=== PATIENT | female | born 1975 | race African-American/Black ===

== ENCOUNTER 2016-09-12 05:59 | Inpatient (IN) ==
[2016-09-12] MEDS ORDERED: SODIUM CHLORIDE 0.9% 1,000 ML IV STA ×3 (06:04→07:53)
--- NOTE | 2016-09-12 06:08 | Emergency Department Note ---
Arrival - Arrival Chief Complaint: Abdominal / Flank Pain Stated Complaint: abd pain Mode of Arrival: Stretcher Limitations: No Limitations Source: Patient Time Seen by Provider: 09/12/16 06:04 - History of Present Illness HPI Narrative: Patient is a 41-year-old noncompliant diabetic with a four-day history of polyuria and polydipsia did not taking her insulin. The patient has had 2 episodes of DKA in her life reportedly. Patient is a type I diabetic. She denies any chills or fever. She states that she had an episode of DKA several months ago when she stopped taking her insulin. The patient recently moved to the [facility] from [place] states that she is just not been able to get her insulin. Insulin is an [id number] medicine in [place]. Onset (ago): day(s) (4) Consistency: constant Severity: moderate, severe Review of System - Review of System 12 point system: reviewed and no additional remarkable complaints except as stated Medical,Surgical,& Family Hx - Medical History Endocrine: History of: Diabetes Mellitus (IDDM) - Social History Smoking Status: Never smoker Type of Drug Use: Marijuana Functional capacity: independent ambulation Exam Vital Signs: Vital Signs Temperature 98.0 F 09/12/16 06:38 Pulse Rate 131 H 09/12/16 06:38 Respiratory Rate 20 09/12/16 06:38 Blood Pressure 164/86 09/12/16 06:38 O2 Sat by Pulse Oximetry 100 09/12/16 06:07 GENERAL: This is a cachectic black female in no apparent distress. VITAL SIGNS: Reviewed HEENT: Head is atraumatic and normocephalic. Pupils are equal round react to light. Extraocular movements are intact. Oropharynx is benign with dry mucous membranes. NECK: Neck is soft and supple without tenderness. There are no masses. There is no lymphadenopathy. LUNGS: Lungs are clear to auscultation. Chest rises symmetrically. There is no chest wall tenderness. CV: Heart is regular rate and rhythm without murmurs rubs or gallops. ABDOMEN: Abdomen is soft, nontender to palpation. There are no abdominal abnormal masses palpated. There is no organomegaly. Bowel sounds are present and active. SKIN: Skin is warm and dry. No rash. Poor turgor EXTREMITIES: Patient has full range of motion without tenderness. There is no pedal edema. NEUROLOGIC: Awake alert and oriented 4. Cranial nerves II through XII are grossly intact. Motor is 5 over 5 in all extremities bilaterally. Course Course Narrative: Patient is given IV fluid bolus on arrival along with 10 units of regular insulin. - Consultations Consultation #1: Discussed with hospitalist. Patient will be admitted to their service. Time: 07:03 Procedures - ABG Interpretation ABG Interpretation 1 Interpretation: metabolic acidosis (With respiratory compensation) Results - Labs Lab Results: I have reviewed the patients labs Labs: Laboratory Tests 09/12/16 09/12/16 09/12/16 06:26 06:32 06:36 ABG pH 7.151 L* ABG pCO2 12.5 L* ABG pO2 121.0 H ABG HCO3 7.4 L ABG Total CO2 4.2 L ABG O2 Saturation 97.2 ABG Base Excess -23.6 L FiO2 21.00 POC Glucose 358 H Urine pH 5.0 Ur Specific [place] 1.021 Urine Protein 100 Urine Glucose (UA) >=500 Urine Ketones 80 Urine RBC 33 Urine WBC <1 Hyaline Casts 1 Urine Test Negative - Diagnostic Findings Procedure: Chest x-ray: image reviewed by me Disposition Clinical Impression: Type 1 diabetes mellitus, DKA Case discussed with: patient Condition: Guarded
[2016-09-12] MEDS ORDERED: ONDANSETRON 4 MG/2 ML VIAL IV STA ×2 (06:33→07:03)
[2016-09-12] MEDS ORDERED: ONDANSETRON 4 MG/2 ML VIAL ONE ×3 (06:36→07:14)
[2016-09-12 06:38] LABS: Apearance,Urine Slightly Hazy (Clear); Bacteria,Urine Occasional /HPF (Few); Bilirubin,Urine Negative (Negative); Blood, Urine Moderate mg/dL (Negative); Glucose,Urine (UA) >=500 mg/dL (Negative); Hyaline Casts,Urine 1 /LPF (0-3); Ketones,Urine 80 mg/dL (Negative); Mucus,Urine Occasional /LPF (Occasional); Nitrite,Urine Negative (Negative); Protein,Urine 100 MG/DL; RBC,Urine 33 /HPF (0-4); Squamous Epithelial Cell,Urine Occasional /HPF (0-10); Urine Color Straw (Yellow); Urine Specific Gravity 1.021 (1.001-1.035); Urine Urobilinogen < 2.0 EU/DL (0.2-1.0); WBC,Urine <1 /HPF (0-6)
[2016-09-12 06:43] LABS: Allen Test Positive; Pt O2 Delivery Device Room Air
[2016-09-12 06:44] LABS: ABG Base Excess -23.6 MMOL/L (-2.5-2.5); ABG HCO3 7.4 MMOL/L (20-26); ABG Oxygen Saturation 97.2 % (95-100); ABG TCO2 4.2 MMOL/L (23-27)
[2016-09-12 06:48] LABS: ABG PCO2 12.5 MM HG (35-48); ABG PH 7.151 (7.35-7.45)
[2016-09-12] MEDS ORDERED: INSULIN REGULAR 100 UNIT/ML IV STA (06:59)
[2016-09-12 07:00] LABS: Barbiturates Screen,Urine Negative (Negative); Benzodiazepines Screen,Urine Negative (Negative); Cannabinoid Screen,Urine Positive (Negative); Opiate Screen,Urine Negative (Negative); Phencyclidine Screen,Urine Negative (Negative)
[2016-09-12] MEDS ORDERED: PROMETHAZINE 25 MG/1 ML VIAL IM STA (07:03)
[2016-09-12 07:05] LABS: Albumin 3.3 G/DL (3.4-5.0); Bilirubin,Total 0.4 MG/DL (0.2-1.0); Osmolality,Calculated 294.4 MOS/KG (273-304); Potassium 4.4 MMOL/L (3.5-5.1); Total Protein 6.6 G/DL (6.4-8.3)
[2016-09-12] MEDS ORDERED: DEXTROSE 50% 25 GM/50 ML VIAL IV PRN ×2 (07:06)
[2016-09-12] MEDS ORDERED: MAGNESIUM SULF RIDER 4 GM in PREMIX 1 EACH IV PRN (07:06)
[2016-09-12] MEDS ORDERED: SODIUM BICARB INJ 100 MEQ in STERILE WATER INJ 400 ML IV PRN (07:06)
[2016-09-12] MEDS ORDERED: MAGNESIUM SULF RIDER 2 GM in PREMIX 1 EACH IV PRN (07:06)
[2016-09-12] MEDS ORDERED: INSULIN REGULAR 100 UNIT/ML IV ONE (07:06)
[2016-09-12] MEDS ORDERED: SODIUM PHOSPHATE INJ 12.5 MMOL in SODIUM CHLORIDE 0.9% 250 ML IV PRN (07:06)
[2016-09-12] MEDS ORDERED: SODIUM CHLORIDE 0.9% 1,000 ML IV ONE (07:06)
[2016-09-12] MEDS ORDERED: INSULIN REGULAR 100 UNIT/ML ONE (07:07)
[2016-09-12] MEDS ORDERED: PROMETHAZINE 25 MG/1 ML VIAL ONE (07:08)
[2016-09-12 07:27] LABS: Magnesium 1.9 MG/DL (1.8-2.4); Phosphorous 3.5 MG/DL (2.5-4.9)
--- NOTE | 2016-09-12 07:40 | XRay Report ---
Referring Physician: VELMA Mcdaniel Exam: XR chest 1V Date: September 12, 2016 at 7:14 AM Reason: Shortness of breath Comparison: None Findings: The cardiac silhouette is normal in size. No focal consolidation, pneumothorax or pleural effusion is identified. No acute osseous process is seen. Impression: No acute cardiopulmonary process is identified. PROCEDURE INTERPRETED AT [facility] DEPARTMENT OF RADIOLOGY Final Report Signed by: Dr. Petr Varghese
[2016-09-12 07:43] LABS: Basophils % 0.3 % (0.0-0.8); Eosinophils % 0.1 % (0.00-10.9); Hematocrit 30.1 VOL% (35.7-47.0); Hemoglobin 8.1 GM/DL (12.0-16.0); Immature Granulocytes % 0.6 %; Immature Granulocytes Absolute 0.08 #; Lymphocytes # 1.6 10*3/uL (1.4-4.0); Lymphocytes % 11.7 % (21.3-54.2); Mean Corpuscular HGB Conc 26.9 GM/DL (32-36); Mean Corpuscular Hemoglobin 22 PG (27-34); Mean Corpuscular Volume 80.9 FL (87-102); Mean Platelet Volume 10.1 FL (9.6-12.0); Monocytes # 0.6 10*3/uL (0.11-0.8); Monocytes % 4.3 % (1.7-12.7); Neutrophils # 11.3 10*3/uL (1.4-7.4); Platelet Count 718 T/CUMM (130-400); Red Blood Count 3.72 MC/CUMM (3.8-5.5); Red Cell Distribution Width 16.5 % (9.3-17.3); White Blood Count 13.6 T/CUMM (4-12)
[2016-09-12 07:53] LABS: Anisocytosis 1+; Hypochromasia 1+; Microcytosis 1+; Ovalocytes Slight; Polychromasia Slight
[2016-09-12 07:54] LABS: Misc Morphology QS; Platelet Estimate Increased
[2016-09-12 07:55] LABS: Burr Cells Slight
--- NOTE | 2016-09-12 08:05 | Hospitalist History & Physical ---
Assessment and Plan (1) Diabetic ketoacidosis Status: Acute Assessment and plan: The patient reported some obvious financial issues that prevent her from obtaining her prescriptions. We will consult forensic social worker to evaluate for any available resources that this patient may be able to qualify for for the discharge setting. In the meantime, we will admit this patient to critical care. We will replace fluid volume, start insulin drip, initiate DVT prophylaxis, PPIs, hourly Accu-Cheks, and strict intake and output. We will obtain a hemoglobin A1c and refer to the multiple drum sander for review. Current Visit: Yes (2) Diabetic ketoacidosis, type I Status: Acute Current Visit: Yes (3) Anemia Status: Acute Assessment and plan: Hemoglobin and hematocrit noted at 8.1 and 30.1 at the time of admission. We will recheck in a.m. and monitor for trends. If levels continue to trend downward, the patient may require transfusion. Current Visit: Yes History of Present Illness Chief complaint: Nausea and vomiting/hyperglycemia History of present illness: This is a very poor and unfortunate 41-year-old female that presented to the ED at [facility] this morning for evaluation of nausea vomiting abdominal and flank pain. Patient has a medical history significant for diabetes mellitus type 1. She reports no surgical history at the time of encounter. The patient reports that she recently ran out of her insulin about 4 days ago and that she has not been able to obtain any. She reports that she recently relocated to the [facility] from [place], [place] and has not secured a primary care physician or been able to obtain her insulin. She reports an episode similar in nature in the past in which she was subsequently diagnosed with diabetic ketoacidosis. She reports a gradual onset of polyuria, polydipsia, polyphagia which started about 4 days ago. She denies tobacco and alcohol use; however reports marijuana use. At the time of ED presentation, the patient was noted in moderate distress. She was tachycardic with a heart rate in the 130s with continuous nausea and vomiting. Labs were obtained, hematology reports white blood cell count at 13.6 , hemoglobin 8.1, hematocrit 30.1, and platelet count is 718. Arterial blood gas was obtained which reported a pH at 7.151, PCO2 of 12.5, HCO3 at 7.4. Chemistry profile was obtained which reported a sodium at 140, potassium at 4.4 , chloride at 110, carbon dioxide is 6, anion gap at 28.4, BUN 11, creatinine at 0.70, glucose of 409, calculated osmolality at 294.4, calcium at 8.0, phosphorus at 3.5, magnesium at 1.9, AST at 12, ALT at 12, alkaline phosphatase at 70, albumin at 3.3, beta hydroxybutyrate acid at 4.4. Chest x-ray was obtained which was benign for any acute cardiopulmonary process. After brief discussion with both Dr. Shepard and Dr. Garcia, the patient will be admitted to the hospitalist services to the critical care unit for management during the clinical encounter. Allergies Allergy/AdvReac Type Severity Reaction Status Date / Time No Known Allergies Allergy Verified 09/12/16 07:19 Medical,Surgical,& Family Hx - Medical History Endocrine: History of: Diabetes Mellitus (IDDM) - Social History Smoking Status: Never smoker Frequency of Alcohol Use: Unknown Type of Drug Use: Marijuana 12 point system: reviewed and no additional remarkable complaints except as stated Exam - Constitutional Vitals: Period Temp Pulse Resp BP Sys/Garcia Pulse Ox Last 24 Hr 98.0 F-98.0 F 121-143 18-27 141-184/78-86 100-100 General appearance: mild distress, under weight - Head Head exam: Present: normal inspection, normocephalic, atraumatic - Eye Eye exam: Present: EOMI. Absent: conjunctival injection Pupils: Present: MAYELIN, normal accommodation - ENT ENT exam: Present: normal exam, normal external ear exam, normal oropharynx - Neck Neck exam: Present: normal inspection. Absent: lymphadenopathy, meningismus, tenderness, thyromegaly - Respiratory Respiratory exam: Present: clear to auscultation bilaterally, prolonged expiratory phase. Absent: rales, rhonchi, stridor, wheezes - Cardiovascular Cardiovascular exam: Present: tachycardia. Absent: carotid bruit, diastolic murmur, gallop, JVD, rubs, systolic murmur - GI/Abdominal GI/Abdominal exam: Present: normal bowel sounds, tenderness (Epigastric), soft - Extremities Exam Extremities exam: Present: normal inspection, normal capillary refill, full ROM , edema - Back Exam Back exam: Present: normal inspection - Neurological Exam Neurological exam: Present: alert, oriented X3, CN II-XII intact - Psychiatric Psychiatric exam: Present: anxious - Skin Skin exam: Present: normal color, warm, dry Results - Labs CBC & BMP: 09/12/16 06:26 09/12/16 06:26 Lab Results: I have reviewed the past 24 hour labs
[2016-09-12] MEDS: INSULIN REGULAR DRIP 100 ML IV SCH (08:22)
[2016-09-12] MEDS ORDERED: MAGNESIUM SULF RIDER 2 GM in PREMIX 1 EACH IV ONE (08:39)
[2016-09-12] MEDS: ONDANSETRON 4 MG/2 ML VIAL IV PRN (09:22)
[2016-09-12] MEDS: ENOXAPARIN 40 MG/0.4 ML SYRINGE SUBCUT SCH (09:28)
[2016-09-12 09:35] LABS: Osmolality,Calculated 300.1 MOS/KG (273-304); Potassium 4.9 MMOL/L (3.5-5.1)
[2016-09-12 09:47] LABS: Apearance,Urine CLEAR (Clear); Bacteria,Urine Occasional /HPF (Few); Bilirubin,Urine Negative (Negative); Blood, Urine Moderate mg/dL (Negative); Glucose,Urine (UA) >=500 mg/dL (Negative); Ketones,Urine 80 mg/dL (Negative); Nitrite,Urine Negative (Negative); Protein,Urine Negative; RBC,Urine 12 /HPF (0-4); Urine Color Colorless (Yellow); Urine Specific Gravity 1.012 (1.001-1.035); Urine Urobilinogen < 2.0 EU/DL (0.2-1.0); WBC,Urine <1 /HPF (0-6)
[2016-09-12] MEDS: SODIUM CHLORIDE 0.9% 1,000 ML IV SCH ×4 (10:00→12:05)
[2016-09-12] MEDS: POTASSIUM CHLORIDE 20 MEQ TABLET PO SCH ×3 (10:21→19:24)
[2016-09-12] MEDS ORDERED: SODIUM CHLORIDE 0.9% 1,000 ML IV SCH (12:06)
[2016-09-12] MEDS ORDERED: MORPHINE 2 MG/1 ML SYRINGE IV PRN (12:15)
[2016-09-12 14:54] LABS: Calcium 7.2 MG/DL (8.5-10.1); Osmolality,Calculated 291.8 MOS/KG (273-304); Potassium 4.7 MMOL/L (3.5-5.1)
[2016-09-12] MEDS: DEXTROSE 5% NACL 0.45% 1,000 ML IV SCH (19:25)
[2016-09-12 20:36] LABS: Calcium 7.1 MG/DL (8.5-10.1); Osmolality,Calculated 287.6 MOS/KG (273-304); Potassium 4.1 MMOL/L (3.5-5.1)
[2016-09-12] MEDS: PROMETHAZINE 25 MG/1 ML VIAL IM PRN (22:01)
[2016-09-13] MEDS: ONDANSETRON 4 MG/2 ML VIAL IV PRN ×2 (00:05→07:10)
[2016-09-13] MEDS ORDERED: SODIUM CHLORIDE 0.45% 1,000 ML IV SCH (00:06)
[2016-09-13] MEDS: DEXTROSE 5% NACL 0.45% 1,000 ML IV SCH ×4 (02:10→17:16)
[2016-09-13 03:39] LABS: ABG Base Excess -11.6 MMOL/L (-2.5-2.5); ABG HCO3 12.3 MMOL/L (20-26); ABG Oxygen Saturation 98.2 % (95-100); ABG PCO2 21.6 MM HG (35-48); ABG PH 7.373 (7.35-7.45); ABG PO2 110.6 MM HG (80-95); Allen Test Positive; Pt O2 Delivery Device Room Air
[2016-09-13] MEDS: PROMETHAZINE 25 MG/1 ML VIAL IM PRN ×2 (04:12→11:29)
[2016-09-13 05:43] LABS: Basophils % 0.1 % (0.0-0.8); Eosinophils % 0.1 % (0.00-10.9); Hematocrit 25.2 VOL% (35.7-47.0); Immature Granulocytes % 0.5 %; Immature Granulocytes Absolute 0.06 #; Lymphocytes # 1.2 10*3/uL (1.4-4.0); Lymphocytes % 9.4 % (21.3-54.2); Mean Corpuscular HGB Conc 27.8 GM/DL (32-36); Mean Corpuscular Hemoglobin 21 PG (27-34); Mean Corpuscular Volume 75.9 FL (87-102); Mean Platelet Volume 9.6 FL (9.6-12.0); Monocytes # 0.6 10*3/uL (0.11-0.8); Monocytes % 4.8 % (1.7-12.7); Neutrophils # 10.7 10*3/uL (1.4-7.4); Neutrophils % 85.1 % (38.7-73.9); Platelet Count 572 T/CUMM (130-400); Red Blood Count 3.32 MC/CUMM (3.8-5.5); Red Cell Distribution Width 16.7 % (9.3-17.3); White Blood Count 12.5 T/CUMM (4-12)
[2016-09-13 05:54] LABS: Hemoglobin 7.2 GM/DL (12.0-16.0)
[2016-09-13 06:04] LABS: Hypochromasia 1+
[2016-09-13 06:05] LABS: Microcytosis 1+; Platelet Estimate Increased
[2016-09-13 06:06] LABS: Calcium 7.7 MG/DL (8.5-10.1); Potassium 3.4 MMOL/L (3.5-5.1)
[2016-09-13 06:07] LABS: Magnesium 2.1 MG/DL (1.8-2.4)
[2016-09-13] MEDS: POTASSIUM CHLORIDE RIDER 10 MEQ in PREMIX 1 EACH IV PRN ×10 (07:10→23:43)
--- NOTE | 2016-09-13 08:26 | Hospitalist Progress Note ---
Assessment and Plan (1) Diabetic ketoacidosis, type I Status: Acute Current Visit: Yes (2) Anemia Status: Acute Assessment and plan: Patient has been admitted to the critical care unit for DKA. Her gap has closed. She still low on her bicarb. I think we need to continue with IV fluids potassium replacement protocol and insulin. I have ordered a KUB for her abdominal pain. Most likely the abdominal pain secondary to the DKA. She has thrown up a lot and it could be secondary to that also. She last smoked marijuana Sunday. This could have contributed to her hyperemesis. We will continue with ICU monitoring and treatment. I have extended the serial BMPs through tomorrow Current Visit: Yes Hospitalist: Subjective Interval history: He should have an significant nausea and vomiting. Complaining about abdominal pain. Exam - Constitutional Vitals: Period Temp Pulse Resp BP Sys/Garcia Pulse Ox Last 24 Hr 97.2 F-98.4 F 99-131 12-28 101-141/57-84 100-100 General appearance: under weight - Head Head exam: Present: normal inspection - ENT ENT exam: Present: normal exam - Neck Neck exam: Present: normal inspection - Respiratory Respiratory exam: Present: clear to auscultation bilaterally - Cardiovascular Cardiovascular exam: Present: regular rate and rhythm - GI/Abdominal GI/Abdominal exam: Present: hypoactive bowel sounds, tenderness - Extremities Exam Extremities exam: Present: normal inspection - Back Exam Back exam: Present: normal inspection - Neurological Exam Neurological exam: Present: alert Results - Labs CBC & BMP: 09/13/16 05:09 09/13/16 05:09
[2016-09-13] MEDS: ENOXAPARIN 40 MG/0.4 ML SYRINGE SUBCUT SCH (09:11)
--- NOTE | 2016-09-13 09:16 | XRay Report ---
Exam: XR KUB Date: 09/13/2016 8:21 AM Comparison: None Indication: Generalized abdominal pain Technique:[Supine abdomen] Findings: Nonobstructed bowel gas pattern. No obvious mass or acute osseous findings. Impression: No definite acute abdominal pathology identified. PROCEDURE INTERPRETED AT [facility] DEPARTMENT OF RADIOLOGY Final Report Signed by: Dr. Ashley Blanco
[2016-09-13 11:30] LABS: Calcium 7.6 MG/DL (8.5-10.1); Osmolality,Calculated 279.3 MOS/KG (273-304); Potassium 3.5 MMOL/L (3.5-5.1)
[2016-09-13] MEDS: INSULIN REGULAR DRIP 100 ML IV SCH ×2 (15:05→22:22)
[2016-09-13] MEDS ORDERED: SCOPOLAMINE 1.5 MG PATCH TRANSDERM PRN (15:57)
[2016-09-13 17:15] LABS: Calcium 7.7 MG/DL (8.5-10.1); Osmolality,Calculated 271.8 MOS/KG (273-304); Potassium 3.6 MMOL/L (3.5-5.1)
[2016-09-13 21:25] LABS: Calcium 7.8 MG/DL (8.5-10.1); Osmolality,Calculated 265.1 MOS/KG (273-304); Potassium 3.5 MMOL/L (3.5-5.1)
[2016-09-14] MEDS: POTASSIUM CHLORIDE RIDER 10 MEQ in PREMIX 1 EACH IV PRN ×8 (00:40→22:48)
[2016-09-14] MEDS: DEXTROSE 5% NACL 0.45% 1,000 ML IV SCH ×3 (01:20→09:57)
[2016-09-14] MEDS: ONDANSETRON 4 MG/2 ML VIAL IV PRN (03:14)
[2016-09-14 05:13] LABS: Potassium 3.3 MMOL/L (3.5-5.1)
[2016-09-14] MEDS ORDERED: DEXT 5% NACL 0.45% KCL 40 MEQ 40 MEQ/1,000 ML BAG IV SCH (09:00)
[2016-09-14] MEDS: ENOXAPARIN 40 MG/0.4 ML SYRINGE SUBCUT SCH (09:21)
[2016-09-14 09:22] LABS: Blood Urea Nitrogen < 1 MG/DL (7-18); Calcium 8.2 MG/DL (8.5-10.1); Glucose 102 MG/DL (74-106); Osmolality,Calculated 269.2 MOS/KG (273-304); Potassium 3.1 MMOL/L (3.5-5.1); Sodium 137 MMOL/L (136-145)
[2016-09-14] MEDS: INSULIN REGULAR DRIP 100 ML IV SCH (09:26)
[2016-09-14] MEDS: INSULIN REGULAR 100 UNIT/ML SUBCUT SCH ×4 (12:13→23:45)
[2016-09-14 15:13] LABS: Calcium 8.4 MG/DL (8.5-10.1); Osmolality,Calculated 275.5 MOS/KG (273-304)
--- NOTE | 2016-09-14 17:05 | Hospitalist Progress Note ---
Assessment and Plan - Time spent with patient Time spent with patient: Greater than 30 minutes (Approximately 32 minutes) (1) Hypokalemia Status: Acute Assessment and plan: Potassium is being supplemented. Check magnesium in a.m. Current Visit: Yes (2) Diabetes Status: Chronic Current Visit: Yes Qualifiers: Diabetes mellitus type: type 1 (3) Diabetic ketoacidosis Status: Acute Assessment and plan: Ketoacidosis continues to improve. Current Visit: Yes Qualifiers: Diabetes mellitus type: type 1 (4) Diabetic ketoacidosis, type I Status: Acute Current Visit: Yes Qualifiers: Diabetes mellitus complication detail: without coma Qualified Code(s): E10.10 - Type 1 diabetes mellitus with ketoacidosis without coma Hospitalist: Subjective Interval history: Today patient glucoses have continued to improve. Insulin infusion has been trended off. Patient is now starting on a clear diet. Anion gap is continuing to close. The potassium is being supplemented. At this time continue with IV fluids. Plan for CBC BMP in a.m. Exam - Constitutional Vitals: Period Temp Pulse Resp BP Sys/Garcia Pulse Ox Last 24 Hr 97.5 F-98.3 F 88-109 10-20 121-166/72-105 100-100 General appearance: normal weight - Head Head exam: Present: normal inspection - Eye Eye exam: Present: EOMI - Neck Neck exam: Present: normal inspection - Respiratory Respiratory exam: Present: clear to auscultation bilaterally - Cardiovascular Cardiovascular exam: Present: regular rate and rhythm - GI/Abdominal GI/Abdominal exam: Present: normal bowel sounds - Extremities Exam Extremities exam: Present: normal inspection - Neurological Exam Neurological exam: Present: alert, oriented X3, CN II-XII intact - Psychiatric Psychiatric exam: Present: normal affect - Skin Skin exam: Present: normal color Results - Labs CBC & BMP: 09/13/16 05:09 09/14/16 14:39
[2016-09-14] MEDS: SODIUM CHLOR 0.9% KCL 40 MEQ 40 MEQ/1,000 ML BAG IV SCH (17:12)
[2016-09-14] MEDS: ALUMINUM/MAGNES/SIMETH MAX STR 30 ML UDCUP PO PRN ×2 (17:13→23:48)
[2016-09-14] MEDS: PROMETHAZINE 25 MG/1 ML VIAL IM PRN (21:37)
[2016-09-15] MEDS: SODIUM CHLOR 0.9% KCL 40 MEQ 40 MEQ/1,000 ML BAG IV SCH ×3 (04:31→18:47)
[2016-09-15] MEDS: INSULIN REGULAR 100 UNIT/ML SUBCUT SCH ×5 (04:42→21:40)
[2016-09-15 05:05] LABS: Basophils % 0.1 % (0.0-0.8); Hemoglobin 8.4 GM/DL (12.0-16.0); Immature Granulocytes % 0.3 %; Immature Granulocytes Absolute 0.03 #; Lymphocytes # 1.1 10*3/uL (1.4-4.0); Lymphocytes % 12.1 % (21.3-54.2); Mean Corpuscular Hemoglobin 21 PG (27-34); Mean Platelet Volume 9.7 FL (9.6-12.0); Monocytes # 0.7 10*3/uL (0.11-0.8); Monocytes % 7.6 % (1.7-12.7); Neutrophils # 7.1 10*3/uL (1.4-7.4); Neutrophils % 79.9 % (38.7-73.9); Platelet Count 530 T/CUMM (130-400); Red Blood Count 3.97 MC/CUMM (3.8-5.5); Red Cell Distribution Width 16.6 % (9.3-17.3); White Blood Count 8.9 T/CUMM (4-12)
[2016-09-15 05:34] LABS: Calcium 7.8 MG/DL (8.5-10.1); Potassium 4.2 MMOL/L (3.5-5.1)
[2016-09-15] MEDS: ENOXAPARIN 40 MG/0.4 ML SYRINGE SUBCUT SCH (08:39)
[2016-09-15] MEDS: CLORAZEPATE 3.75 MG TABLET PO SCH ×2 (10:28→21:40)
--- NOTE | 2016-09-15 12:32 | Hospitalist Progress Note ---
Assessment and Plan (1) Hypokalemia Status: Resolved Assessment and plan: This is resolved Current Visit: Yes (2) Diabetes Status: Chronic Current Visit: Yes Qualifiers: Diabetes mellitus type: type 1 (3) Diabetic ketoacidosis Status: Resolved Assessment and plan: Ketoacidosis continues to improve. Current Visit: Yes Qualifiers: Diabetes mellitus type: type 1 (4) Diabetic ketoacidosis, type I Status: Resolved Current Visit: Yes Qualifiers: Diabetes mellitus complication detail: without coma Qualified Code(s): E10.10 - Type 1 diabetes mellitus with ketoacidosis without coma Hospitalist: Subjective Interval history: The patient is resting no further vomiting. Currently on a clear liquid diet. Glucoses have been acceptable. At this time stable to transfer to floor. Exam - Constitutional Vitals: Period Temp Pulse Resp BP Sys/Garcia Pulse Ox Last 24 Hr 97.0 F-98.3 F 96-122 12-18 121-169/72-102 100-100 General appearance: normal weight - Head Head exam: Present: normal inspection - Respiratory Respiratory exam: Present: clear to auscultation bilaterally - Cardiovascular Cardiovascular exam: Present: regular rate and rhythm - GI/Abdominal GI/Abdominal exam: Present: normal bowel sounds - Neurological Exam Neurological exam: Present: alert, oriented X3 - Psychiatric Psychiatric exam: Present: normal affect Results - Labs CBC & BMP: 09/15/16 03:51 09/15/16 03:51
[2016-09-16] MEDS: INSULIN REGULAR 100 UNIT/ML SUBCUT SCH ×7 (01:18→23:34)
[2016-09-16] MEDS: SODIUM CHLOR 0.9% KCL 40 MEQ 40 MEQ/1,000 ML BAG IV SCH ×2 (01:19→10:18)
[2016-09-16] MEDS: ENOXAPARIN 40 MG/0.4 ML SYRINGE SUBCUT SCH (08:55)
[2016-09-16] MEDS: CLORAZEPATE 3.75 MG TABLET PO SCH ×2 (08:56→21:28)
--- NOTE | 2016-09-16 09:30 | Hospitalist Progress Note ---
Assessment and Plan (1) Diabetic ketoacidosis, type I Status: Resolved Assessment and plan: Ketoacidosis continues to improve. Plan Advance to DM diet DM teaching Will commence with half of the home dose of Novolin 70/30 20units bid A1c-13.3 Will get lipids and TSH Current Visit: Yes Qualifiers: Diabetes mellitus complication detail: without coma Qualified Code(s): E10.10 - Type 1 diabetes mellitus with ketoacidosis without coma (2) Anemia Status: Acute Assessment and plan: will get Iron studies, stool for occult blood Current Visit: Yes Hospitalist: Subjective Interval history: Patient seen. She is tolerating po intake, and wants her diet advanced.patient states takes Novolin 70/30 40units bid. Exam - Constitutional Vitals: Period Temp Pulse Resp BP Sys/Garcia Pulse Ox Last 24 Hr 97.7 F-99.0 F 95-113 16-20 122-161/75-94 99-100 General appearance: no acute distress - Head Head exam: Present: normal inspection - Respiratory Respiratory exam: Present: clear to auscultation bilaterally - Cardiovascular Cardiovascular exam: Present: regular rate and rhythm - GI/Abdominal GI/Abdominal exam: Present: normal bowel sounds - Extremities Exam Extremities exam: Present: normal inspection - Neurological Exam Neurological exam: Present: alert, oriented X3 Results - Labs CBC & BMP: 09/15/16 03:51 09/15/16 03:51 Lab Results: I have reviewed the past 24 hour labs
[2016-09-16] MEDS: INSULIN NPH/REGULAR 70/30 100 UNIT/ML SUBCUT SCH ×2 (10:15→16:23)
[2016-09-16 11:09] LABS: % Iron Saturation 3.7 % (18-50)
[2016-09-16 11:29] LABS: Free T4 (Free Thyroxine) 1.35 NG/DL (0.76-1.46); Thyroid Stimulating Hormone 1.54 uIU/ml (0.358-3.74)
[2016-09-17] MEDS: INSULIN REGULAR 100 UNIT/ML SUBCUT SCH ×5 (05:00→20:23)
[2016-09-17 06:29] LABS: Risk Ratio 3.14; VLDL CHOLESTEROL 17.8 MG/DL
[2016-09-17] MEDS: INSULIN NPH/REGULAR 70/30 100 UNIT/ML SUBCUT SCH ×2 (08:11→17:35)
[2016-09-17] MEDS: CLORAZEPATE 3.75 MG TABLET PO SCH ×2 (08:11→21:48)
[2016-09-17 08:15] LABS: Basophils % 0.3 % (0.0-0.8); Eosinophils # 0.1 10*3/uL (0.0-0.87); Eosinophils % 1.3 % (0.00-10.9); Hematocrit 25.9 VOL% (35.7-47.0); Hemoglobin 7.6 GM/DL (12.0-16.0); Immature Granulocytes % 0.1 %; Immature Granulocytes Absolute 0.01 #; Lymphocytes % 28.1 % (21.3-54.2); Mean Corpuscular HGB Conc 29.3 GM/DL (32-36); Mean Corpuscular Hemoglobin 22 PG (27-34); Mean Corpuscular Volume 75.1 FL (87-102); Mean Platelet Volume 10.2 FL (9.6-12.0); Monocytes # 0.5 10*3/uL (0.11-0.8); Monocytes % 7.5 % (1.7-12.7); Neutrophils # 4.5 10*3/uL (1.4-7.4); Neutrophils % 62.7 % (38.7-73.9); Platelet Count 355 T/CUMM (130-400); Red Blood Count 3.45 MC/CUMM (3.8-5.5); Red Cell Distribution Width 17.2 % (9.3-17.3); White Blood Count 7.1 T/CUMM (4-12)
[2016-09-17 08:27] LABS: Calcium 8.2 MG/DL (8.5-10.1); Osmolality,Calculated 275.4 MOS/KG (273-304); Potassium 3.7 MMOL/L (3.5-5.1)
--- NOTE | 2016-09-17 09:27 | Hospitalist Progress Note ---
Assessment and Plan (1) Diabetic ketoacidosis, type I Status: Resolved Assessment and plan: Ketoacidosis has improved.Lipid and TSH- unremarkable.A1c-13.3 Plan Continue with DM diet, DM teaching. Continue current Insulin regime. Current Visit: Yes Qualifiers: Diabetes mellitus complication detail: without coma Qualified Code(s): E10.10 - Type 1 diabetes mellitus with ketoacidosis without coma (2) Anemia Status: Acute Assessment and plan: due to Fe deficiency.Follow stool for occult blood -Pelvic uss to evaluate her heavy menstrual bleeds which could be a pointer to the cause of this anemia - Start Fe supplements Current Visit: Yes Hospitalist: Subjective Interval history: Patient seen this am. She didn't sleep well at night.Her H/H dropped to 7.6/ 25.9. She denies any bloody stools but states a history of heavy menstrual bleed.She also wants her heart monitor discontinued. Exam - Constitutional Vitals: Period Temp Pulse Resp BP Sys/Garcia Pulse Ox Last 24 Hr 98.2 F-98.6 F 91-116 18-18 105-127/61-78 100-100 General appearance: no acute distress - Neck Neck exam: Present: normal inspection - Respiratory Respiratory exam: Present: clear to auscultation bilaterally - GI/Abdominal GI/Abdominal exam: Present: normal bowel sounds - Extremities Exam Extremities exam: Present: normal inspection - Neurological Exam Neurological exam: Present: alert, oriented X3 Results - Labs CBC & BMP: 09/17/16 05:12 09/17/16 05:12 Lab Results: I have reviewed the past 24 hour labs
[2016-09-17] MEDS: IRON (CARBONYL) 45 MG TABLET PO SCH (09:45)
[2016-09-17] MEDS: ENOXAPARIN 40 MG/0.4 ML SYRINGE SUBCUT SCH (09:48)
--- NOTE | 2016-09-17 13:49 | Ultrasound Report ---
US pelvic complete Indication: Heavy menstrual bleeding. Pelvic ultrasound: Transabdominal grayscale images of the pelvis were obtained. Uterus is anteverted and midline measuring 79 x 43 x 49 mm. Endometrial stripe is 3 mm thick. There is a 3 x 3 mm echogenic focus, likely a polyp, in the lower uterine segment. At least 2 presumed fibroids are present, both pedunculated, largest at the anterior fundus measuring 42 x 48 x 43 mm. Right ovary 25 x 19 x 14 mm. Left ovary 27 x 19 x 15 mm. Both are unremarkable. No free fluid. Impression: 1. Leiomyomata. 2. Small 3 mm echogenic focus in the lower uterine segment endometrial canal, likely a polyp. PROCEDURE INTERPRETED AT [facility] DEPARTMENT OF RADIOLOGY Final Report Signed by: Jeffrey Davis M.D.
[2016-09-18] MEDS: INSULIN REGULAR 100 UNIT/ML SUBCUT SCH ×6 (00:05→21:18)
[2016-09-18 05:47] LABS: Basophils % 0.3 % (0.0-0.8); Eosinophils # 0.1 10*3/uL (0.0-0.87); Eosinophils % 1.2 % (0.00-10.9); Hematocrit 26.3 VOL% (35.7-47.0); Hemoglobin 7.7 GM/DL (12.0-16.0); Immature Granulocytes % 0.4 %; Immature Granulocytes Absolute 0.03 #; Lymphocytes # 1.7 10*3/uL (1.4-4.0); Lymphocytes % 21.8 % (21.3-54.2); Mean Corpuscular HGB Conc 29.3 GM/DL (32-36); Mean Corpuscular Hemoglobin 22 PG (27-34); Mean Corpuscular Volume 75.1 FL (87-102); Mean Platelet Volume 9.9 FL (9.6-12.0); Monocytes # 0.5 10*3/uL (0.11-0.8); Monocytes % 6.3 % (1.7-12.7); Neutrophils # 5.3 10*3/uL (1.4-7.4); Platelet Count 306 T/CUMM (130-400); Red Cell Distribution Width 17.2 % (9.3-17.3); White Blood Count 7.6 T/CUMM (4-12)
[2016-09-18] MEDS: INSULIN NPH/REGULAR 70/30 100 UNIT/ML SUBCUT SCH ×2 (08:40→17:29)
[2016-09-18] MEDS: CLORAZEPATE 3.75 MG TABLET PO SCH ×2 (08:41→21:18)
[2016-09-18] MEDS: IRON (CARBONYL) 45 MG TABLET PO SCH ×2 (08:41→21:18)
--- NOTE | 2016-09-18 09:54 | Hospitalist Progress Note ---
Assessment and Plan (1) Diabetic ketoacidosis, type I Status: Resolved Assessment and plan: Ketoacidosis has improved but blood sugar was 336 this am. Lipid and TSH- unremarkable.A1c-13.3 Plan Continue with DM diet, DM teaching. Increase 70/30 to 40 bid which is the home dose, follow response. Current Visit: Yes Qualifiers: Diabetes mellitus complication detail: without coma Qualified Code(s): E10.10 - Type 1 diabetes mellitus with ketoacidosis without coma (2) Anemia Status: Acute Assessment and plan: due to Fe deficiency.Follow stool for occult blood -Pelvic uss showed presence of fibroids - Continue with Fe supplements and outpt OBGYN consult. Current Visit: Yes Hospitalist: Subjective Interval history: Patient seen this am. Her blood sugar was high in the 300s. Pelvic USS confirmed presence of fibroids. Exam - Constitutional Vitals: Period Temp Pulse Resp BP Sys/Garcia Pulse Ox Last 24 Hr 97.9 F-98.9 F 89-103 17-18 101-115/7-96 100-100 General appearance: no acute distress - Head Head exam: Present: normal inspection - Neck Neck exam: Present: normal inspection - Respiratory Respiratory exam: Present: clear to auscultation bilaterally - Cardiovascular Cardiovascular exam: Present: regular rate and rhythm - GI/Abdominal GI/Abdominal exam: Present: normal bowel sounds - Extremities Exam Extremities exam: Present: normal inspection - Neurological Exam Neurological exam: Present: alert, oriented X3 Results - Labs CBC & BMP: 09/18/16 05:08 09/17/16 05:12 Lab Results: I have reviewed the past 24 hour labs
[2016-09-18] MEDS ORDERED: DOCUSATE SODIUM 100 MG CAPSULE PO PRN (09:57)
[2016-09-19] MEDS: INSULIN REGULAR 100 UNIT/ML SUBCUT SCH ×4 (01:04→11:17)
[2016-09-19 06:30] LABS: Basophils % 0.2 % (0.0-0.8); Eosinophils # 0.1 10*3/uL (0.0-0.87); Hematocrit 26.9 VOL% (35.7-47.0); Hemoglobin 7.7 GM/DL (12.0-16.0); Immature Granulocytes % 0.4 %; Immature Granulocytes Absolute 0.04 #; Lymphocytes # 2.2 10*3/uL (1.4-4.0); Mean Corpuscular HGB Conc 28.6 GM/DL (32-36); Mean Corpuscular Hemoglobin 22 PG (27-34); Mean Corpuscular Volume 75.1 FL (87-102); Mean Platelet Volume 10.1 FL (9.6-12.0); Monocytes # 0.6 10*3/uL (0.11-0.8); Monocytes % 6.3 % (1.7-12.7); Neutrophils # 6.5 10*3/uL (1.4-7.4); Neutrophils % 69.1 % (38.7-73.9); Platelet Count 290 T/CUMM (130-400); Red Blood Count 3.58 MC/CUMM (3.8-5.5); Red Cell Distribution Width 17.2 % (9.3-17.3); White Blood Count 9.4 T/CUMM (4-12)
[2016-09-19 06:49] LABS: Hypochromasia 2+; Microcytosis 1+; Platelet Estimate Adequate; Polychromasia Slight
[2016-09-19] MEDS: CLORAZEPATE 3.75 MG TABLET PO SCH (08:09)
[2016-09-19] MEDS: IRON (CARBONYL) 45 MG TABLET PO SCH (08:10)
[2016-09-19] MEDS: INSULIN NPH/REGULAR 70/30 100 UNIT/ML SUBCUT SCH (08:20)
--- NOTE | 2016-09-19 08:49 | Discharge Summary ---
<Janet Ferris - Last Filed: 09/19/16 08:28> Hospital Course - Hospital Course Hospital Course: Ms. Underwood is a 41 yr old female with a history of diabetes that presented to the [facility] ED on 09/12 with complaints of nausea and vomiting with abdominal and flank pain. At the time, pt reported that she'd recently run out of insulin. Pt. also reported not having a PCP here in [place] as she had recently [place]. Pt. stated she was experiencing polyuria , polydipisia, and polyphagia. On exam in the ED, pt was noted to have a WBC of 13.6, h&h 8.1/30.1, and glucose of 409. The patient was admitted to the hospitalist service for DKA, placed in the ICU . Pt. received IV fluids and and was on an insulin infusion.Her HbA1c was 13.3. Her blood sugars improved, she was moved to the floor and placed on sliding scale insulin.Her home home dose was restarted initially with half of it and was subsequently increased. Her diet was further advanced .During the patient's hospital stay her h&h dropped to 7.6/25.9. Due to her reports of heavy menstrual cycles, the patient was started on an iron supplement and a pelvic US was performed. This ultrasound confirmed presence of fibroids. She will see an OBGYN as outpt. Pt's blood sugars have been under control. library services assistant has spoken with patient about her options due to limited insurance. Pt. has also been educated about diabetes management. Pt. is stable today and ready for discharge. She is encouraged to seek PCP follow up and was counseled to quit marijuana. Discharge Plan - Discharge Data Disposition: Disch To Home/Self Care - Discharge Medications New Docusate Sodium Cap [Colace Cap] 100 mg PO BID PRN #60 capsule PRN Reason: Constipation Iron (Carbonyl) [Feosol Natural Release Tab] 45 mg PO BID #60 tablet Clorazepate [Tranxene] 3.75 mg PO BID #20 tablet Continue Insulin NPH Hum/Reg Insulin Hm [NovoLIN 70/30] 40 unit SUBCUT BID #7 - Follow Up or Referral - Forms/Instructions Exam - Constitutional Vitals: Period Temp Pulse Resp BP Sys/Garcia Pulse Ox Last 24 Hr 97.7 F-98.7 F 96-128 18-20 97-115/54-76 95-100 Discharge Results Procedures and tests throughout hospitalization: Pending Orders 09/19/16 07:50 Occult Blood, Stool Routine Labs on day of discharge: Labs from last 24 hours 09/19/16 09/19/16 09/19/16 06:15 03:56 01:39 WBC 9.4 RBC 3.58 L Hgb 7.7 L Hct 26.9 L MCV 75.1 L MCH 22 L MCHC 28.6 L RDW 17.2 Plt Count 290 MPV 10.1 Neut % (Auto) 69.1 Lymph % (Auto) 23.0 Hand % (Auto) 6.3 Eos % (Auto) 1.0 Baso % (Auto) 0.2 Neut # (Auto) 6.5 Lymph # (Auto) 2.2 Hand # (Auto) 0.6 Eos # (Auto) 0.1 Baso # (Auto) 0.0 Immature Gran % 0.4 Nucleated RBC % 0.0 Immature Gran # 0.04 Nucleated RBCs # 0.00 Platelet Estimate Adequate Polychromasia Slight Hypochromasia 2+ Microcytosis 1+ POC Glucose 161 H 105 09/19/16 09/18/16 09/18/16 00:39 20:22 16:17 WBC RBC Hgb Hct MCV MCH MCHC RDW Plt Count MPV Neut % (Auto) Lymph % (Auto) Hand % (Auto) Eos % (Auto) Baso % (Auto) Neut # (Auto) Lymph # (Auto) Hand # (Auto) Eos # (Auto) Baso # (Auto) Immature Gran % Nucleated RBC % Immature Gran # Nucleated RBCs # Platelet Estimate Polychromasia Hypochromasia Microcytosis POC Glucose 57 L 185 H 95 09/18/16 11:39 WBC RBC Hgb Hct MCV MCH MCHC RDW Plt Count MPV Neut % (Auto) Lymph % (Auto) Hand % (Auto) Eos % (Auto) Baso % (Auto) Neut # (Auto) Lymph # (Auto) Hand # (Auto) Eos # (Auto) Baso # (Auto) Immature Gran % Nucleated RBC % Immature Gran # Nucleated RBCs # Platelet Estimate Polychromasia Hypochromasia Microcytosis POC Glucose 345 H DS: Provider Date of admission: 09/12/16 07:03 Primary care physician: . No PCP Attending physician on admission: Bear Garcia MD Consults: 09/12/16 07:06 Consult to [facility], Educator [CONS] Routine Reason for Pipe Covering Molder: Diabetes Education Initial Insulin Education Consult Comment: INSULIN EDUCATION 09/12/16 09:54 Consult to Dietitian [CONS] Routine Reason for Dietitian: Dietary Consult 09/16/16 09:44 Consult to [facility], Educator [CONS] Routine Reason for Pipe Covering Molder: Diabetes Education Consult Comment: admitted with DKA 09/18/16 10:07 Consult to Case Mgmt/Social Srvs [CONS] Routine Reason for Case Mgmt/Social Srvs: Other Consult Comment: pt saying she needs assistance with purchasing insulin Discharging clinician: Janet Ferris NP <Vielka Oneil - Last Filed: 09/19/16 09:57> Hospital Course - Time spent with patient Time with patient DS: Greater than 30 minutes (Time spent >34mins) Diagnosis - Discharge Diagnosis (1) Diabetic ketoacidosis, type I Status: Resolved (2) Anemia Status: Acute (3) Fibroid Status: Acute Discharge Plan - Discharge Data Condition at Discharge: Stable Discharge Diet: diabetic diet Activity: resume usual activities as tolerated - Forms/Instructions Additional Discharge Instructions: follow with PCP in 1week. Schedule outpt OBGYN. Exam - Constitutional General appearance: no acute distress - Head Head exam: Present: normal inspection - Respiratory Respiratory exam: Present: clear to auscultation bilaterally - Cardiovascular Cardiovascular exam: Present: regular rate and rhythm - GI/Abdominal GI/Abdominal exam: Present: normal bowel sounds - Extremities Exam Extremities exam: Present: normal inspection
[2016-09-19 10:37] VITALS: BP 134/80
== END 2016-09-19 13:40 | disposition home or self-care (01) | DRG 638 ==
LOC: N.ED 05:59 → N.EDINP 07:03 → SUATTDRO 07:03 → N.ICU 08:00 → N.5E 09-15 15:01
PROVIDERS: ADMIT Internal Medicine; ATTEND Internal Medicine

== ENCOUNTER 2016-11-30 11:44 | Inpatient (IN) ==
[2016-11-30] MEDS ORDERED: PANTOPRAZOLE 40 MG VIAL IV STA (12:11)
[2016-11-30] MEDS ORDERED: ONDANSETRON 4 MG/2 ML VIAL IV STA (12:11)
[2016-11-30] MEDS ORDERED: SODIUM CHLORIDE 0.9% 1,000 ML IV STA ×2 (12:11→15:26)
--- NOTE | 2016-11-30 12:29 | Emergency Department Note ---
Lady Delarosa Hilary, am scribing for, and in the presence of, Joce Weber MD 12:18. Tia Delarosa Charles R, MD, personally performed the services described in this documentation, ascribed by Nadya Narayanan in my presence, and it is both accurate and complete . Arrival - Arrival Chief Complaint: Non-Specific ED Nursing Triage Note: Brought in by EMS c/o elevated glucose-onset this morning. Glucose 389 mg/dl after taking Novolin 70/30 40 units @ 1020 this morning. Mode of Arrival: Stretcher Limitations: No Limitations Source: Patient, RN Notes Reviewed Time Seen by Provider: 11/30/16 12:05 - History of Present Illness HPI Narrative: Pt is a 41 y/o female brought to the ED via EMS for c/o abdominal pain and elevated glucose which onset this morning. Glucose was 389 mg/dl after Novolin 70/30 40 units at 1020. She reports being fine yesterday but woke up this morning with lower abdominal pain, nausea and vomiting. Pt states that she has had similar symptoms to this and ended up in DKA. She also reports losing weight recently. Pt has a PMHx of IDDM. No other complaints or problems stated in the ED. Onset (ago): hour(s) Consistency: constant Severity: moderate, similar to previous episodes Severity scale (1-10): 2 Quality: cramping Date of Last Menstrual Period: 11/26/16 Allergies/Adverse Reactions: Allergies Allergy/AdvReac Type Severity Reaction Status Date / Time No Known Allergies Allergy Verified 09/12/16 07:19 Home Medications: Home Medications Medication Instructions Recorded Confirmed Type Clorazepate [Tranxene] 3.75 mg PO BID #20 tablet 09/19/16 Rx Docusate Sodium Cap [Colace Cap] 100 mg PO BID PRN #60 capsule 09/19/16 Rx Insulin NPH Hum/Reg Insulin Hm 40 unit SUBCUT BID #7 09/19/16 Rx [NovoLIN 70/30] Iron (Carbonyl) [Feosol Natural 45 mg PO BID #60 tablet 09/19/16 Rx Release Tab] Review of System - Review of System 12 point system: reviewed and no additional remarkable complaints except as stated - Review of System Constitutional: Present: other (high blood sugar). Absent: fever Gastrointestinal: Present: abdominal pain, nausea, vomiting Medical,Surgical,& Family Hx - Medical History Cardio: No history of: Cardiovascular Problems HEENT: History of: Eye Problem (over the counter glasses) Endocrine: History of: Diabetes Mellitus (IDDM) Respiratory: No history of: Respiratory Problems Renal: No history of: Renal Problems Gastrointestinal: History of: GI Problems ("feels like food gets stuck") - Surgical History Neurologic Surgeries: Patient denies: Neurologic Surgery - Family History Family History: Reports;: Family Diabetes (father), Family Hypertension (father) Denies;: Family Anesthesia Reaction, Family Cancer, Family Heart Disease, Family Psychiatric Problems, Family Stroke - Social History Smoking Status: Never smoker Frequency of Alcohol Use: Occasionally Type of Drug Use: None Exam Vital Signs: Vital Signs Temperature 97.9 F 11/30/16 11:51 Pulse Rate 116 H 11/30/16 13:21 Respiratory Rate 15 11/30/16 13:21 Blood Pressure 144/117 11/30/16 13:21 O2 Sat by Pulse Oximetry 100 11/30/16 13:21 - General General appearance: alert, in no apparent distress, other (small frame) - Head Head exam: Present: atraumatic, normocephalic - Eye Eye exam: Present: normal appearance, PERRL, EOMI - ENT ENT exam: Present: mucous membranes dry, TM's normal bilaterally. Absent: mucous membranes moist - Neck Neck exam: Present: full ROM, trachea midline. Absent: tenderness - Chest Chest inspection: Present: symmetric chest wall rise. Absent: tenderness - Respiratory Respiratory exam: Present: normal lung sounds bilaterally. Absent: respiratory distress - Cardiovascular Cardiovascular exam: Present: normal rhythm, tachycardia, normal heart sounds. Absent: murmur, rubs, gallop - Abdominal Exam Abdominal exam: Present: soft, tenderness (lower to mid abdominal pain), diminished bowel sounds. Absent: distention - Extremities Exam Extremities exam: Present: full ROM. Absent: tenderness - Back Exam Back exam: Present: full ROM. Absent: tenderness - Neurological Exam Neurological exam: Present: alert, oriented X3, CN II-XII intact. Absent: motor sensory deficit - Psychiatric Psychiatric exam: Present: normal affect, normal mood - Skin Skin exam: Present: warm, dry, intact, normal color. Absent: rash Course - Consultations Consultation #1: Hospitalist will admit patient Time: 15:12 Results - Labs CBC & BMP: 11/30/16 12:23 11/30/16 12:23 Lab Results: I have reviewed the patients labs Labs: Laboratory Tests 11/30/16 11:57 POC Glucose 371 H Laboratory Tests 11/30/16 12:23 Lactic Acid 2.1 H Laboratory Tests 11/30/16 11/30/16 12:23 12:23 WBC 8.5 RBC 4.38 Hgb 9.9 L Hct 35.3 L MCV 80.6 L MCH 23 L MCHC 28.0 L Plt Count 518 H Neut % (Auto) 85.2 H Lymph % (Auto) 10.8 L Lymph # (Auto) 0.9 L Sodium 136 Potassium 4.3 Chloride 104 Carbon Dioxide 11 L Anion Gap 25.3 H Glucose 389 H Troponin I < 0.015 Globulin 4.3 H Albumin/Globulin Ratio 0.9 L Amylase 19 L Laboratory Tests 11/30/16 12:11 ABG pH 7.282 L ABG pCO2 24.6 L ABG pO2 147.0 H ABG HCO3 13.5 L ABG Total CO2 10.9 L ABG Base Excess -14.0 L Laboratory Tests 11/30/16 12:23 b-Hydroxybutyric mmol/L 4.7 H - Diagnostic Findings Procedure: Abdominal x-ray: report reviewed by me (No active process is suggested within the abdomen or pelvis), Chest x-ray: report reviewed by me (No acute pathology) Critical Care Time Critical Care Time: Yes Total Critical Care Time: 60 Disposition Clinical Impression: DKA (diabetic ketoacidoses), Metabolic acidosis, Intractable nausea and vomiting, Hyperglycemia Case discussed with: patient Disposition: Still a Patient Condition: Critical Time of Disposition: 15:12
[2016-11-30] MEDS ORDERED: PANTOPRAZOLE 40 MG VIAL IV ONE (12:50)
[2016-11-30] MEDS ORDERED: ONDANSETRON 4 MG/2 ML VIAL ONE ×2 (12:51→13:23)
[2016-11-30 12:54] LABS: Lactic Acid 2.1 MMOL/L (0.4-2.0)
[2016-11-30 13:01] LABS: Basophils % 0.4 % (0.0-0.8); Hematocrit 35.3 VOL% (35.7-47.0); Hemoglobin 9.9 GM/DL (12.0-16.0); Immature Granulocytes % 0.4 %; Immature Granulocytes Absolute 0.03 #; Lymphocytes # 0.9 10*3/uL (1.4-4.0); Lymphocytes % 10.8 % (21.3-54.2); Mean Corpuscular Hemoglobin 23 PG (27-34); Mean Corpuscular Volume 80.6 FL (87-102); Mean Platelet Volume 10.1 FL (9.6-12.0); Monocytes # 0.3 10*3/uL (0.11-0.8); Monocytes % 3.2 % (1.7-12.7); Neutrophils # 7.3 10*3/uL (1.4-7.4); Neutrophils % 85.2 % (38.7-73.9); Platelet Count 518 T/CUMM (130-400); Red Blood Count 4.38 MC/CUMM (3.8-5.5); Red Cell Distribution Width 17.3 % (9.3-17.3); White Blood Count 8.5 T/CUMM (4-12)
[2016-11-30 13:13] LABS: Alanine Aminotransferase 18 U/L (13-56); Alkaline Phosphatase 93 U/L (45-117); Amylase 19 U/L (25-115); Aspartate Amino Transferase 15 U/L (0-37); Blood Urea Nitrogen 17 MG/DL (7-18); Calcium 9.2 MG/DL (8.5-10.1); Glucose 389 MG/DL (74-106); Magnesium 2.3 MG/DL (1.8-2.4); Potassium 4.3 MMOL/L (3.5-5.1); Sodium 136 MMOL/L (136-145); Total Protein 8.3 G/DL (6.4-8.3); Troponin I Only < 0.015 NG/ML (0.00-0.045)
[2016-11-30 13:45] LABS: ABG HCO3 13.5 MMOL/L (20-26); ABG PCO2 24.6 MM HG (35-48); ABG PH 7.282 (7.35-7.45); ABG TCO2 10.9 MMOL/L (23-27)
[2016-11-30] MEDS ORDERED: INSULIN REGULAR 100 UNIT/ML IV STA ×2 (13:48→15:24)
--- NOTE | 2016-11-30 14:08 | XRay Report ---
XR abdomen 2V Indication: Abdominal pain. Comparison: None. Technique: Flat and erect images of the abdomen were performed. Findings: Lung bases are clear. No organomegaly suggested. The bowel gas pattern demonstrates no significant abnormality. Bony structures as well as soft tissues demonstrate no evidence of significant pathology. Impression: 1. No active process is suggested within the abdomen or pelvis. 11/30/2016 2:06 PM PROCEDURE INTERPRETED AT [facility] DEPARTMENT OF RADIOLOGY Final Report Signed by: Dr. Abhishek Hendricks
--- NOTE | 2016-11-30 14:09 | XRay Report ---
XR chest 1V portable Indication: Abdominal pain. Comparison: None. Technique: Portable AP chest was performed. Findings: Heart size is normal. Pulmonary vasculature appears within normal limits. No significant abnormality of the mediastinal contours demonstrated. Lungs are clear. Bones and soft tissues demonstrate no significant abnormalities. Impression: 1. No evidence of acute pathology. 11/30/2016 2:06 PM PROCEDURE INTERPRETED AT [facility] DEPARTMENT OF RADIOLOGY Final Report Signed by: Dr. Abhishek Hendricks
[2016-11-30] MEDS ORDERED: INSULIN REGULAR 100 UNIT/ML ONE ×2 (14:44→15:40)
--- NOTE | 2016-11-30 14:57 | EKG Report ---
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
[2016-11-30 15:25] LABS: Apearance,Urine CLEAR (Clear); Bilirubin,Urine Negative (Negative); Blood, Urine Negative (Negative); Glucose,Urine (UA) >=500 mg/dL (Negative); Ketones,Urine 80 mg/dL (Negative); Mucus,Urine Occasional /LPF (Occasional); Nitrite,Urine Negative (Negative); Protein,Urine 30 MG/DL; RBC,Urine 1 /HPF (0-4); Squamous Epithelial Cell,Urine Occasional /HPF (0-10); Urine Color Yellow (Yellow); Urine Specific Gravity 1.025 (1.001-1.035); Urine Urobilinogen < 2.0 EU/DL (0.2-1.0); WBC,Urine 1 /HPF (0-6)
[2016-11-30] MEDS ORDERED: SODIUM CHLORIDE 0.9% 1,000 ML IV ONE ×2 (15:25→18:05)
--- NOTE | 2016-11-30 15:50 | Hospitalist History & Physical ---
<Beverly Hopkins - Last Filed: 11/30/16 15:37> Assessment and Plan - Time spent with patient Time spent with patient: Greater than 30 minutes (1) DKA (diabetic ketoacidoses) Status: Acute Assessment and plan: 11/30/16: Admit to CCU. Start IV fluids Ordered A1c repeat a.m. labs Monitor potassium with replacement protocol Sodium bicarb replacement Insulin Infusion Close Glucose Monitoring Will discuss with Dr Garcia for further recommendations with care. Current Visit: Yes History of Present Illness Chief complaint: abdominal pain and elevated glucose History of present illness: Ms. Underwood is a 41 year old black female w/ PMHx of Type I Diabetes (dx at age 35) and fibroids presented to the ED for further evaluation of elevated glucose of 389 mg/dl after taking 70/30 40 units at 10:20 a.m. and abdominal pain with associated nausea. She reports shortness of breath and feeling like her "heart was pounding out of her chest". Denies chest pain, cough, fever, or chills. IN ED: LABS: ABG: pH 7.282, pCO2 24.6, pO2 147.0, HCO3 13.5, base excess -14.0. Anion Gap 25.3, Glucose 371. Urinalysis negative for infection, Ketones 80. Abd Xray: nothing acute. CXR: nothing acute. She recently moved here from [place] and currently lives with her sister. Denies smoking. Admits to occasional alcohol use. Admits to Marijuana use (last use 1-2 days ago). FMHx: Father & Grandfather: Diabetic. No surgical history. Has never taken the Flu vaccine. PCP: does not currently have a primary care physician. After discussion with Dr Weber in the ED and Dr Garcia with Hospitalist Services it was agreed to admit patient to Critical Care for DKA treatment and close monitoring. Will review home medications and reconciliation to follow. Home Medications Medication Instructions Recorded Confirmed Type Clorazepate [Tranxene] 3.75 mg PO BID #20 tablet 09/19/16 11/30/16 Rx Iron (Carbonyl) [Feosol Natural 45 mg PO BID #60 tablet 09/19/16 11/30/16 Rx Release Tab] Insulin NPH Hum/Reg Insulin Hm 40 unit SUBCUT BID W/MEALS 11/30/16 11/30/16 History [NovoLIN 70/30] Allergies Allergy/AdvReac Type Severity Reaction Status Date / Time No Known Allergies Allergy Verified 09/12/16 07:19 Medical,Surgical,& Family Hx - Medical History Cardio: No history of: Cardiovascular Problems HEENT: History of: Eye Problem (over the counter glasses) Endocrine: History of: Diabetes Mellitus (IDDM) (Type I) Respiratory: No history of: Respiratory Problems Renal: No history of: Renal Problems Gastrointestinal: History of: GI Problems ("feels like food gets stuck") - Surgical History Neurologic Surgeries: Patient denies: Neurologic Surgery - Family History Family History: Reports;: Family Diabetes (father), Family Hypertension (father) Denies;: Family Anesthesia Reaction, Family Cancer, Family Heart Disease, Family Psychiatric Problems, Family Stroke - Social History Smoking Status: Never smoker Frequency of Alcohol Use: Occasionally Type of Drug Use: None, Marijuana Marital Status: Single Lives With:: living with a sister/moved here 2 months ago Functional capacity: independent ambulation 12 point system: reviewed and no additional remarkable complaints except as stated Exam - Constitutional Vitals: Period Temp Pulse Resp BP Sys/Garcia Pulse Ox Last 24 Hr 97.9 F-97.9 F 116-121 12-19 144-145/92-117 100-100 General appearance: under weight - Head Head exam: Present: normal inspection - Eye Eye exam: Present: EOMI Pupils: Present: MAYELIN - Neck Neck exam: Present: normal inspection. Absent: thyromegaly - Respiratory Respiratory exam: Present: clear to auscultation bilaterally. Absent: rhonchi, stridor, wheezes - Cardiovascular Cardiovascular exam: Present: regular rate and rhythm - GI/Abdominal GI/Abdominal exam: Present: normal bowel sounds, soft. Absent: tenderness, rebound - Extremities Exam Extremities exam: Present: normal inspection, full ROM. Absent: edema - Neurological Exam Neurological exam: Present: alert, oriented X3, CN II-XII intact - Psychiatric Psychiatric exam: Present: normal affect, normal mood. Absent: agitated, anxious - Skin Skin exam: Present: normal color, warm, dry Results - Labs CBC & BMP: 11/30/16 12:23 11/30/16 12:23 Lab Results: I have reviewed the past 24 hour labs - Diagnostic Findings Procedure: Abdominal x-ray: report reviewed by me (No active process is suggested within the abdomen or pelvis), Chest x-ray: report reviewed by me (No evidence of acute pathology) <Ange Garcia - Last Filed: 11/30/16 17:31> Assessment and Plan (1) DKA (diabetic ketoacidoses) Status: Acute Assessment and plan: agree with above Current Visit: Yes (2) Microcytic anemia Status: Acute Assessment and plan: due to menses Current Visit: Yes (3) Metabolic acidosis Status: Acute Assessment and plan: due to DKA, hydration and IV insulin Current Visit: Yes History of Present Illness History of present illness: Ms. Underwood is a 41 year old female seen and examined. Agree with above Medical,Surgical,& Family Hx - Surgical History Additional Surgical History: None - Constitutional Constitutional: Present: fatigue. Absent: fever(s) - EENT Eyes: Absent: blurry vision, diplopia Ears: Absent: decreased hearing, ear discharge Nose, mouth and throat: Absent: headache(s), sore throat - Cardiovascular Cardiovascular: Present: dyspnea on exertion. Absent: chest pain at rest, dyspnea - Respiratory Respiratory: Present: dyspnea on exertion. Absent: dyspnea - Gastrointestinal Gastrointestinal: Present: abdominal pain, nausea, vomiting - Genitourinary Genitourinary: Absent: difficulty urinating, dysuria - Neurological Neurological: Absent: headache(s), syncope - Psychiatric Psychiatric: Present: depression. Absent: anxiety - Endocrine Endocrine: Present: cold intolerance, fatigue - Hematologic/Lymphatic Hematologic/Lymphatic: Absent: easy bleeding, easy bruising Exam - Constitutional Vitals: Period Temp Pulse Resp BP Sys/Garcia Pulse Ox Last 24 Hr 97.9 F-97.9 F 108-121 9-19 118-145/72-117 99-100 General appearance: no acute distress - Head Head exam: Present: normocephalic - Eye Eye exam: Absent: scleral icterus Pupils: Present: normal accommodation - ENT ENT exam: Present: normal exam, normal external ear exam - Cardiovascular Cardiovascular exam: Present: tachycardia - Neurological Exam Neurological exam: Present: reflexes normal. Absent: motor sensory deficit Results - Labs CBC & BMP: 11/30/16 12:23 11/30/16 12:23
[2016-11-30] MEDS ORDERED: INSULIN REGULAR 100 UNIT/ML IV ONE ×2 (18:05→22:28)
[2016-11-30] MEDS ORDERED: SODIUM BICARB INJ 100 MEQ in STERILE WATER INJ 400 ML IV PRN (18:05)
[2016-11-30] MEDS ORDERED: INSULIN REGULAR DRIP 100 ML IV SCH (18:05)
[2016-11-30] MEDS ORDERED: DEXTROSE 50% 25 GM/50 ML SYRINGE IV PRN ×2 (18:05)
[2016-11-30] MEDS ORDERED: MAGNESIUM SULF RIDER 4 GM in PREMIX 1 EACH IV PRN (18:05)
[2016-11-30] MEDS ORDERED: MAGNESIUM SULF RIDER 2 GM in PREMIX 1 EACH IV PRN (18:05)
[2016-11-30] MEDS ORDERED: SODIUM PHOSPHATE INJ 13 MMOL in SODIUM CHLORIDE 0.9% 250 ML IV PRN (18:05)
[2016-11-30 18:23] LABS: Magnesium 2.3 MG/DL (1.8-2.4); Phosphorous 3.5 MG/DL (2.5-4.9)
[2016-11-30] MEDS: SODIUM CHLORIDE 0.9% 1,000 ML IV SCH ×2 (18:47→22:38)
[2016-11-30] MEDS: ENOXAPARIN 40 MG/0.4 ML SYRINGE SUBCUT SCH (18:47)
[2016-11-30 18:57] LABS: Basophils % 0.2 % (0.0-0.8); Eosinophils % 0.1 % (0.00-10.9); Hematocrit 30.9 VOL% (35.7-47.0); Immature Granulocytes % 0.3 %; Immature Granulocytes Absolute 0.03 #; Lymphocytes % 21.5 % (21.3-54.2); Mean Corpuscular HGB Conc 28.2 GM/DL (32-36); Mean Corpuscular Hemoglobin 22 PG (27-34); Mean Corpuscular Volume 79.2 FL (87-102); Mean Platelet Volume 10.3 FL (9.6-12.0); Monocytes # 0.5 10*3/uL (0.11-0.8); Monocytes % 5.3 % (1.7-12.7); Neutrophils # 6.8 10*3/uL (1.4-7.4); Neutrophils % 72.6 % (38.7-73.9); Platelet Count 502 T/CUMM (130-400); Red Cell Distribution Width 17.4 % (9.3-17.3); White Blood Count 9.3 T/CUMM (4-12)
[2016-11-30] MEDS ORDERED: DEXTROSE 5% NACL 0.9% 1,000 ML IV SCH ×2 (19:00→22:30)
[2016-11-30 19:01] LABS: Hemoglobin 8.7 GM/DL (12.0-16.0)
[2016-11-30 19:08] LABS: Calcium 8.2 MG/DL (8.5-10.1); Potassium 4.3 MMOL/L (3.5-5.1)
[2016-11-30 20:14] LABS: Anisocytosis Slight; Microcytosis Slight; Platelet Estimate Increased
[2016-11-30] MEDS ORDERED: SODIUM CHLORIDE 0.9% 1,000 ML IV SCH (20:26)
[2016-11-30] MEDS ORDERED: CLORAZEPATE 3.75 MG TABLET PO SCH (21:00)
[2016-11-30 23:06] LABS: Calcium 7.6 MG/DL (8.5-10.1); Osmolality,Calculated 281.5 MOS/KG (273-304); Potassium 3.9 MMOL/L (3.5-5.1)
[2016-12-01] MEDS ORDERED: DEXT 5% NACL 0.45% KCL 20 MEQ 20 MEQ/1,000 ML BAG IV SCH (00:30)
[2016-12-01] MEDS: DEXTROSE 5% NACL 0.45% 1,000 ML IV SCH ×3 (00:36→10:54)
[2016-12-01] MEDS: POTASSIUM CHLORIDE RIDER 10 MEQ in PREMIX 1 EACH IV PRN ×6 (00:37→14:00)
[2016-12-01 00:51] LABS: Apearance,Urine Slightly Hazy (Clear); Bacteria,Urine Few /HPF (Few); Bilirubin,Urine Negative (Negative); Blood, Urine Small mg/dL (Negative); Glucose,Urine (UA) 150 mg/dL (Negative); Ketones,Urine 80 mg/dL (Negative); Mucus,Urine Occasional /LPF (Occasional); Nitrite,Urine Negative (Negative); Protein,Urine 30 MG/DL; RBC,Urine 2 /HPF (0-4); Squamous Epithelial Cell,Urine Occasional /HPF (0-10); Urine Color Yellow (Yellow); Urine Specific Gravity 1.015 (1.001-1.035); Urine Urobilinogen < 2.0 EU/DL (0.2-1.0); WBC,Urine 14 /HPF (0-6)
[2016-12-01 03:02] LABS: Basophils % 0.3 % (0.0-0.8); Eosinophils # 0.1 10*3/uL (0.0-0.87); Eosinophils % 1.4 % (0.00-10.9); Hemoglobin 7.4 GM/DL (12.0-16.0); Immature Granulocytes % 0.3 %; Immature Granulocytes Absolute 0.02 #; Lymphocytes # 2.3 10*3/uL (1.4-4.0); Lymphocytes % 32.4 % (21.3-54.2); Mean Corpuscular HGB Conc 28.5 GM/DL (32-36); Mean Corpuscular Hemoglobin 22 PG (27-34); Mean Corpuscular Volume 78.3 FL (87-102); Mean Platelet Volume 9.8 FL (9.6-12.0); Monocytes # 0.5 10*3/uL (0.11-0.8); Monocytes % 6.9 % (1.7-12.7); Neutrophils # 4.1 10*3/uL (1.4-7.4); Neutrophils % 58.7 % (38.7-73.9); Platelet Count 415 T/CUMM (130-400); Red Blood Count 3.32 MC/CUMM (3.8-5.5); Red Cell Distribution Width 17.2 % (9.3-17.3)
[2016-12-01 03:29] LABS: Magnesium 1.8 MG/DL (1.8-2.4); Phosphorous 1.7 MG/DL (2.5-4.9)
[2016-12-01 03:31] LABS: Calcium 7.5 MG/DL (8.5-10.1); Osmolality,Calculated 274.7 MOS/KG (273-304); Osmolality,Calculated 276.5 MOS/KG (273-304); Potassium 3.7 MMOL/L (3.5-5.1); Potassium 3.8 MMOL/L (3.5-5.1)
[2016-12-01 05:34] LABS: Giant Platelets Few; Hypochromasia 1+; Microcytosis Slight; Ovalocytes Slight; Platelet Estimate Adequate
[2016-12-01] MEDS: SODIUM CHLORIDE 0.45% 1,000 ML IV SCH ×2 (08:20→16:18)
[2016-12-01 08:43] LABS: Calcium 7.4 MG/DL (8.5-10.1); Magnesium 2.4 MG/DL (1.8-2.4); Osmolality,Calculated 274.7 MOS/KG (273-304); Potassium 3.4 MMOL/L (3.5-5.1)
[2016-12-01] MEDS ORDERED: DEXTROSE 50% 25 GM/50 ML VIAL IV PRN (08:56)
[2016-12-01] MEDS ORDERED: GLUCAGON 1 MG VIAL IM PRN (08:56)
[2016-12-01] MEDS: INSULIN GLARGINE 100 UNIT/ML SUBCUT SCH (09:45)
[2016-12-01] MEDS: INSULIN LISPRO 100 UNIT/ML SUBCUT SCH ×4 (10:09→22:11)
[2016-12-01 10:47] LABS: Calcium 7.5 MG/DL (8.5-10.1); Osmolality,Calculated 274.8 MOS/KG (273-304); Potassium 3.7 MMOL/L (3.5-5.1)
--- NOTE | 2016-12-01 11:48 | Hospitalist Progress Note ---
Assessment and Plan (1) DKA (diabetic ketoacidoses) Status: Acute Assessment and plan: gap closed, stop insulin drip, lantus 20 units SQ daily Current Visit: Yes (2) Microcytic anemia Status: Acute Assessment and plan: due to menses, low hgb dilutional, monitor Current Visit: Yes (3) Metabolic acidosis Status: Acute Assessment and plan: due to DKA, resolved Current Visit: Yes Hospitalist: Subjective Interval history: Patient's blood sugars look good today. We will give her 20 of Lantus subcu and to wait 1 hour and turn off the insulin drip. If stable will move her upstairs. Patient feels much better and wants a full diet. We have ordered a diabetic diet. She denies any nausea or vomiting today her pain gone away. Exam - Constitutional Vitals: Period Temp Pulse Resp BP Sys/Garcia Pulse Ox Last 24 Hr 97.7 F-98.7 F 87-121 9-23 109-145/65-117 99-100 Exam: Heart Rate-[tachy] Lungs-[CTAB] GI-[+bs soft, NT] Ext-[no edema] Neuro [Motor 5/5], [alert and oriented times 3] psych [normal mood and affect] General [no acute distress] Results - Labs CBC & BMP: 12/01/16 02:44 12/01/16 09:59 Lab Results: I have reviewed the past 24 hour labs
[2016-12-01 14:19] LABS: Calcium 7.5 MG/DL (8.5-10.1); Potassium 3.8 MMOL/L (3.5-5.1)
[2016-12-01] MEDS: ENOXAPARIN 40 MG/0.4 ML SYRINGE SUBCUT SCH (16:14)
[2016-12-02] MEDS: INSULIN LISPRO 100 UNIT/ML SUBCUT SCH ×5 (02:08→17:54)
[2016-12-02] MEDS: SODIUM CHLORIDE 0.45% 1,000 ML IV SCH ×3 (02:09→15:45)
[2016-12-02] MEDS: INSULIN GLARGINE 100 UNIT/ML SUBCUT SCH (08:48)
--- NOTE | 2016-12-02 10:48 | Discharge Summary ---
Hospital Course - Hospital Course Hospital Course: 41 year old black female w/ PMHx of Type I Diabetes (dx at age 35) and iron deficiency anemia fibroids presented to the ED for further evaluation of elevated glucose of 389 mg/dl. patient was noted to be in DKA and had metabolic acidosis. She ran out of her insulin. She is negative for any evidence of infection. Her initial UA was negative. Blood cultures 2 negative. Chest x- ray negative for infection. Patient was started on insulin drip with aggressive IV hydration. Her DKA resolved and she was moved out of the unit. She has done well overnight blood sugars are in fair control. Will pay for a month of her insulin over at [facility]. I have sent a prescription to [facility]. She uses the generic relying on brand at [facility] and is less expensive. Patient is mildly anemic due to fibroids. She was taking iron until she ran out. Her hemoglobin on admission was 9.9 and is dropped down to 7.4 which is delusional due to IV fluids. I would not give her blood at this point. I would recommend that she get back on iron. She is financially very strapped. She does have family in town and will call some of his see if she can stay with them. Follow-up with [facility] in 1 week. - Time spent with patient Time with patient DS: Less than 30 minutes (25 minute) Diagnosis - Discharge Diagnosis (1) DKA (diabetic ketoacidoses) Status: Acute (2) Microcytic anemia Status: Acute (3) Metabolic acidosis Status: Acute Specialty Discharge - Follow Up or Referrals Discharge Plan - Discharge Data Disposition: Disch To Home/Self Care Condition at Discharge: Stable Discharge Diet: diabetic diet Activity: resume usual activities as tolerated Hygiene: no restrictions Weight Bearing at Discharge: full weight bearing - Discharge Medications New Ferrous Sulfate [Iron] 325 mg PO DAILY #30 tablet Changed Insulin NPH Hum/Reg Insulin Hm [NovoLIN 70/30] 20 unit SUBCUT BID W/MEALS # 100 ml Discontinued Iron (Carbonyl) [Feosol Natural Release Tab] 45 mg PO BID #60 tablet Clorazepate [Tranxene] 3.75 mg PO BID #20 tablet - Follow Up or Referral Follow Up: [facility] [Provider Group] - 1 Week - Forms/Instructions Instructions: How to Check Your Blood Sugar (DC), Diabetic Ketoacidosis (DC), Diabetic Ketoacidosis (GEN), Diabetic Foot Care (DC) Exam - Constitutional Vitals: Period Temp Pulse Resp BP Sys/Garcia Pulse Ox Last 24 Hr 97.9 F-98.4 F 92-109 16-20 129-151/54-92 99-100 General appearance: no acute distress - Respiratory Respiratory exam: Present: clear to auscultation bilaterally. Absent: rhonchi, wheezes - Cardiovascular Cardiovascular exam: Present: regular rate and rhythm, tachycardia - GI/Abdominal GI/Abdominal exam: Present: normal bowel sounds Discharge Results Procedures and tests throughout hospitalization: Pending Orders 11/30/16 18:16 Blood Culture Stat 12/01/16 Urine Culture Routine Labs on day of discharge: Labs from last 24 hours 12/02/16 12/02/16 12/01/16 05:55 01:56 21:57 Sodium Potassium Chloride Carbon Dioxide Anion Gap BUN Creatinine GFR Calculation BUN/Creatinine Ratio Glucose POC Glucose 247 H 152 H 280 H Calculated Osmolality Calcium 12/01/16 12/01/16 12/01/16 17:38 15:56 13:56 Sodium 136 Potassium 3.8 Chloride 107 Carbon Dioxide 23 Anion Gap 9.8 BUN 5 L Creatinine 0.60 GFR Calculation 124 BUN/Creatinine Ratio 8.00 Glucose 220 H POC Glucose 216 H 201 H Calculated Osmolality 275.0 Calcium 7.5 L 12/01/16 12/01/16 12/01/16 13:35 11:01 09:59 Sodium 137 Potassium 3.7 Chloride 107 Carbon Dioxide 23 Anion Gap 10.7 BUN 6 L Creatinine 0.50 L GFR Calculation 131 BUN/Creatinine Ratio 12.00 Glucose 178 H POC Glucose 244 H 310 H Calculated Osmolality 274.8 Calcium 7.5 L Preliminary micro results at discharge 11/30/16 18:16 Blood Culture - Preliminary Blood No growth at 1 day 11/30/16 18:16 Blood Culture - Preliminary Blood No growth at 1 day DS: Provider Date of admission: 11/30/16 15:24 Primary care physician: . No PCP Attending physician on admission: Ange Garcia MD Consults: 11/30/16 18:05 Consult to [facility], Educator [CONS] Routine Reason for Recharger: Diabetes Education Initial Insulin Education Consult Comment: INSULIN EDUCATION Discharging clinician: Ange Garcia MD
[2016-12-02] MEDS: ENOXAPARIN 40 MG/0.4 ML SYRINGE SUBCUT SCH (15:20)
[2016-12-02 16:31] VITALS: BP 150/92
== END 2016-12-02 17:55 | disposition home or self-care (01) | DRG 639 ==
LOC: EDBD → EDUNIT# → N.ED 11:44 → N.EDINP 15:24 → N.CC 18:04 → N.5E 12-01 11:56
PROVIDERS: ADMIT Internal Medicine; ATTEND Internal Medicine

== ENCOUNTER 2017-02-16 07:23 | Inpatient (IN) ==
[2017-02-16] MEDS ORDERED: ONDANSETRON 4 MG/2 ML VIAL ONE (07:39)
[2017-02-16] MEDS ORDERED: ONDANSETRON 4 MG/2 ML VIAL IV STA ×2 (07:40→07:47)
[2017-02-16] MEDS ORDERED: SODIUM CHLORIDE 0.9% 1,000 ML IV STA ×2 (07:47→08:15)
[2017-02-16] MEDS ORDERED: INSULIN REGULAR 100 UNIT/ML IV STA (07:48)
[2017-02-16] MEDS ORDERED: INSULIN REGULAR 100 UNIT/ML ONE (08:03)
[2017-02-16 08:12] LABS: Apearance,Urine CLOUDY (Clear); Bilirubin,Urine Negative (Negative); Blood, Urine Small mg/dL (Negative); Glucose,Urine (UA) >=500 mg/dL (Negative); Ketones,Urine 80 mg/dL (Negative); Mucus,Urine Occasional /LPF (Occasional); Nitrite,Urine Negative (Negative); Protein,Urine 30 MG/DL; Squamous Epithelial Cell,Urine Occasional /HPF (0-10); Urine Color Yellow (Yellow); Urine Specific Gravity 1.022 (1.001-1.035); Urine Urobilinogen < 2.0 EU/DL (0.2-1.0); WBC,Urine 11 /HPF (0-6)
[2017-02-16 09:09] LABS: Basophils % 0.3 % (0.0-0.8); Hematocrit 32.7 VOL% (35.7-47.0); Immature Granulocytes % 0.6 %; Immature Granulocytes Absolute 0.09 #; Lymphocytes # 0.7 10*3/uL (1.4-4.0); Lymphocytes % 4.6 % (21.3-54.2); Mean Corpuscular HGB Conc 26.6 GM/DL (32-36); Mean Corpuscular Hemoglobin 21 PG (27-34); Mean Corpuscular Volume 78.6 FL (87-102); Mean Platelet Volume 10.7 FL (9.6-12.0); Monocytes # 0.2 10*3/uL (0.11-0.8); Monocytes % 1.2 % (1.7-12.7); Neutrophils # 14.3 10*3/uL (1.4-7.4); Neutrophils % 93.3 % (38.7-73.9); Platelet Count 454 T/CUMM (130-400); Red Blood Count 4.16 MC/CUMM (3.8-5.5); Red Cell Distribution Width 15.9 % (9.3-17.3); White Blood Count 15.3 T/CUMM (4-12)
[2017-02-16 09:10] LABS: Hemoglobin 8.7 GM/DL (12.0-16.0)
[2017-02-16 09:15] LABS: Albumin 3.8 G/DL (3.4-5.0); Bilirubin,Total 0.5 MG/DL (0.2-1.0); Calcium 9.2 MG/DL (8.5-10.1); Osmolality,Calculated 310.7 MOS/KG (273-304); Total Protein 8.2 G/DL (6.4-8.3)
[2017-02-16 09:23] LABS: Hypochromasia 2+; Lymphocytes 2 % (20-55); Microcytosis 1+; Segmented Neutrophils 95 % (50-85); Total Cells Counted 100
[2017-02-16 09:25] LABS: Ovalocytes Slight; Platelet Estimate Increased
[2017-02-16] MEDS ORDERED: INSULIN REGULAR DRIP 100 ML IV ONE (09:33)
[2017-02-16] MEDS: INSULIN REGULAR DRIP 100 ML IV SCH (09:42)
[2017-02-16] MEDS ORDERED: ENOXAPARIN 30 MG/0.3 ML SYRINGE SUBCUT SCH (10:00)
[2017-02-16] MEDS ORDERED: INSULIN REGULAR DRIP 100 ML IV SCH (10:00)
[2017-02-16] MEDS ORDERED: SODIUM PHOSPHATE INJ 13.6 MMOL in SODIUM CHLORIDE 0.9% 250 ML IV PRN (10:00)
[2017-02-16] MEDS ORDERED: MAGNESIUM SULF RIDER 2 GM in PREMIX 1 EACH IV PRN (10:00)
[2017-02-16] MEDS ORDERED: SODIUM CHLORIDE 0.9% 1,000 ML IV ONE (10:00)
[2017-02-16] MEDS ORDERED: SODIUM BICARB INJ 100 MEQ in STERILE WATER INJ 400 ML IV PRN (10:00)
[2017-02-16] MEDS ORDERED: DEXTROSE 50% 25 GM/50 ML VIAL IV PRN ×2 (10:00)
[2017-02-16] MEDS ORDERED: INSULIN REGULAR 100 UNIT/ML IV ONE (10:00)
[2017-02-16] MEDS ORDERED: MAGNESIUM SULF RIDER 4 GM in PREMIX 1 EACH IV PRN (10:00)
[2017-02-16] MEDS ORDERED: POTASSIUM CHLORIDE RIDER 10 MEQ in PREMIX 1 EACH IV PRN (10:00)
[2017-02-16] MEDS ORDERED: DOCUSATE SODIUM 100 MG CAPSULE PO PRN (10:08)
[2017-02-16] MEDS ORDERED: guaiFENesin/DM ER 600-30 MG TABLET PO PRN (10:08)
[2017-02-16] MEDS ORDERED: ZALEPLON 5 MG CAPSULE PO PRN (10:08)
[2017-02-16] MEDS ORDERED: ONDANSETRON 4 MG/2 ML VIAL IV PRN (10:08)
[2017-02-16] MEDS ORDERED: ACETAMINOPHEN 325 MG TABLET PO PRN (10:08)
[2017-02-16] MEDS ORDERED: diphenhydrAMINE CAP 25 MG CAPSULE PO PRN (10:08)
[2017-02-16 10:10] LABS: ABG Base Excess -16.1 MMOL/L (-2.5-2.5); ABG HCO3 8.8 MMOL/L (20-26); ABG Oxygen Saturation 97.4 % (95-100); ABG PH 7.286 (7.35-7.45); ABG TCO2 9.3 MMOL/L (23-27)
[2017-02-16 10:12] LABS: ABG PCO2 18.8 MM HG (35-48)
[2017-02-16 10:22] LABS: Magnesium 2.5 MG/DL (1.8-2.4); Phosphorous 6.2 MG/DL (2.5-4.9)
[2017-02-16] MEDS: SODIUM CHLORIDE 0.9% 1,000 ML IV SCH ×2 (11:00→11:31)
[2017-02-16 11:38] LABS: Calcium 8.8 MG/DL (8.5-10.1); Osmolality,Calculated 307.4 MOS/KG (273-304); Potassium 4.3 MMOL/L (3.5-5.1)
[2017-02-16 11:45] LABS: Basophils % 0.1 % (0.0-0.8); Hematocrit 31.9 VOL% (35.7-47.0); Immature Granulocytes % 0.8 %; Immature Granulocytes Absolute 0.15 #; Lymphocytes # 1.2 10*3/uL (1.4-4.0); Lymphocytes % 5.9 % (21.3-54.2); Mean Corpuscular HGB Conc 27.6 GM/DL (32-36); Mean Corpuscular Hemoglobin 21 PG (27-34); Mean Corpuscular Volume 76.5 FL (87-102); Mean Platelet Volume 10.5 FL (9.6-12.0); Monocytes # 1.2 10*3/uL (0.11-0.8); Monocytes % 5.9 % (1.7-12.7); Neutrophils # 17.2 10*3/uL (1.4-7.4); Neutrophils % 87.3 % (38.7-73.9); Platelet Count 407 T/CUMM (130-400); Red Blood Count 4.17 MC/CUMM (3.8-5.5); Red Cell Distribution Width 15.9 % (9.3-17.3); White Blood Count 19.6 T/CUMM (4-12)
[2017-02-16] MEDS: PANTOPRAZOLE 40 MG TABLET PO SCH (11:45)
[2017-02-16 11:58] LABS: Hemoglobin 8.8 GM/DL (12.0-16.0)
[2017-02-16 12:41] LABS: Hypochromasia 2+; Microcytosis 1+
[2017-02-16 12:43] LABS: Polychromasia Slight
[2017-02-16 14:33] LABS: Calcium 8.4 MG/DL (8.5-10.1); Osmolality,Calculated 300.3 MOS/KG (273-304)
[2017-02-16] MEDS ORDERED: SODIUM CHLORIDE 0.9% 1,000 ML IV SCH (15:00)
[2017-02-16] MEDS: DEXT 5% NACL 0.45% KCL 20 MEQ 20 MEQ/1,000 ML BAG IV SCH ×2 (17:00→22:19)
[2017-02-16 19:02] LABS: Osmolality,Calculated 300.1 MOS/KG (273-304); Potassium 4.1 MMOL/L (3.5-5.1)
[2017-02-16 20:04] LABS: ABG Base Excess -9.4 MMOL/L (-2.5-2.5); ABG HCO3 16.8 MMOL/L (20-26); ABG Oxygen Saturation 98.2 % (95-100); ABG PCO2 29.1 MM HG (35-48); ABG PH 7.336 (7.35-7.45); ABG TCO2 14.8 MMOL/L (23-27); Pt O2 Delivery Device Room Air
[2017-02-16 22:31] LABS: Calcium 7.7 MG/DL (8.5-10.1); Osmolality,Calculated 298.7 MOS/KG (273-304)
[2017-02-17] MEDS ORDERED: SODIUM CHLOR 0.45% KCL 20 MEQ 20 MEQ/1,000 ML BAG IV SCH (01:30)
[2017-02-17] MEDS: DEXT 5% NACL 0.45% KCL 20 MEQ 20 MEQ/1,000 ML BAG IV SCH (01:48)
[2017-02-17] MEDS: ACETAMINOPHEN 325 MG TABLET PO PRN (01:50)
[2017-02-17] MEDS ORDERED: SODIUM CHLORIDE 0.45% 1,000 ML IV SCH (03:00)
[2017-02-17 03:47] LABS: ABG Base Excess -4.8 MMOL/L (-2.5-2.5); ABG HCO3 18.9 MMOL/L (20-26); ABG Oxygen Saturation 98.8 % (95-100); ABG PCO2 29.3 MM HG (35-48); ABG PH 7.428 (7.35-7.45); ABG TCO2 19.8 MMOL/L (23-27); Pt O2 Delivery Device Room Air
[2017-02-17] MEDS ORDERED: DEXT 5% NACL 0.45% KCL 20 MEQ 20 MEQ/1,000 ML BAG IV SCH (05:00)
[2017-02-17] MEDS ORDERED: DEXTROSE 5% NACL 0.45% 1,000 ML IV SCH (05:00)
[2017-02-17 06:23] LABS: Basophils % 0.3 % (0.0-0.8); Eosinophils % 0.3 % (0.00-10.9); Hematocrit 26.4 VOL% (35.7-47.0); Hemoglobin 7.5 GM/DL (12.0-16.0); Immature Granulocytes % 0.5 %; Immature Granulocytes Absolute 0.06 #; Lymphocytes # 2.8 10*3/uL (1.4-4.0); Lymphocytes % 23.7 % (21.3-54.2); Mean Corpuscular HGB Conc 28.4 GM/DL (32-36); Mean Corpuscular Hemoglobin 22 PG (27-34); Mean Corpuscular Volume 75.6 FL (87-102); Mean Platelet Volume 10.5 FL (9.6-12.0); Monocytes # 0.8 10*3/uL (0.11-0.8); Monocytes % 7.3 % (1.7-12.7); Neutrophils # 7.9 10*3/uL (1.4-7.4); Neutrophils % 67.9 % (38.7-73.9); Platelet Count 373 T/CUMM (130-400); Red Blood Count 3.49 MC/CUMM (3.8-5.5); Red Cell Distribution Width 15.9 % (9.3-17.3); White Blood Count 11.6 T/CUMM (4-12)
[2017-02-17 06:38] LABS: Calcium 8.2 MG/DL (8.5-10.1); Osmolality,Calculated 280.1 MOS/KG (273-304); Potassium 3.7 MMOL/L (3.5-5.1)
[2017-02-17 06:42] LABS: Phosphorous 1.5 MG/DL (2.5-4.9)
[2017-02-17] MEDS: SODIUM CHLOR 0.45% KCL 20 MEQ 20 MEQ/1,000 ML BAG IV SCH ×2 (07:44→16:08)
[2017-02-17 08:02] LABS: Giant Platelets Few; Hypochromasia 1+; Microcytosis Slight; Ovalocytes Slight; Platelet Estimate Adequate
[2017-02-17] MEDS: INSULIN REGULAR 100 UNIT/ML SUBCUT SCH ×5 (08:28→21:44)
[2017-02-17] MEDS: PANTOPRAZOLE 40 MG TABLET PO SCH (08:29)
[2017-02-17 09:04] LABS: Calcium 7.9 MG/DL (8.5-10.1); Osmolality,Calculated 283.3 MOS/KG (273-304); Potassium 3.9 MMOL/L (3.5-5.1)
[2017-02-17] MEDS: ENOXAPARIN 40 MG/0.4 ML SYRINGE SUBCUT SCH (09:40)
[2017-02-17] MEDS: INSULIN REGULAR DRIP 100 ML IV SCH (11:15)
[2017-02-17] MEDS ORDERED: DEXTROSE 50% 25 GM/50 ML VIAL IV PRN (12:23)
[2017-02-17] MEDS ORDERED: GLUCAGON 1 MG VIAL IM PRN (12:23)
[2017-02-17] MEDS: INSULIN NPH 100 UNIT/ML SUBCUT SCH (16:10)
[2017-02-18] MEDS: INSULIN REGULAR 100 UNIT/ML SUBCUT SCH ×5 (00:27→16:18)
[2017-02-18] MEDS: SODIUM CHLOR 0.45% KCL 20 MEQ 20 MEQ/1,000 ML BAG IV SCH ×3 (00:29→15:38)
[2017-02-18 06:02] LABS: Basophils % 0.4 % (0.0-0.8); Eosinophils # 0.1 10*3/uL (0.0-0.87); Eosinophils % 1.3 % (0.00-10.9); Hematocrit 25.9 VOL% (35.7-47.0); Hemoglobin 7.3 GM/DL (12.0-16.0); Immature Granulocytes % 0.3 %; Immature Granulocytes Absolute 0.02 #; Lymphocytes # 2.2 10*3/uL (1.4-4.0); Lymphocytes % 30.5 % (21.3-54.2); Mean Corpuscular HGB Conc 28.2 GM/DL (32-36); Mean Corpuscular Hemoglobin 21 PG (27-34); Mean Corpuscular Volume 73.8 FL (87-102); Mean Platelet Volume 10.7 FL (9.6-12.0); Monocytes # 0.5 10*3/uL (0.11-0.8); Monocytes % 7.1 % (1.7-12.7); Neutrophils # 4.3 10*3/uL (1.4-7.4); Neutrophils % 60.4 % (38.7-73.9); Platelet Count 371 T/CUMM (130-400); Red Blood Count 3.51 MC/CUMM (3.8-5.5); Red Cell Distribution Width 16.1 % (9.3-17.3); White Blood Count 7.2 T/CUMM (4-12)
[2017-02-18 06:40] LABS: Calcium 8.4 MG/DL (8.5-10.1); Osmolality,Calculated 277.3 MOS/KG (273-304); Potassium 3.9 MMOL/L (3.5-5.1)
[2017-02-18 06:52] LABS: Platelet Estimate Normal
[2017-02-18 06:55] LABS: Anisocytosis 1+; Microcytosis 1+
[2017-02-18] MEDS: INSULIN NPH 100 UNIT/ML SUBCUT SCH ×2 (08:24→16:19)
[2017-02-18] MEDS: PANTOPRAZOLE 40 MG TABLET PO SCH (08:25)
[2017-02-18] MEDS: ACETAMINOPHEN 325 MG TABLET PO PRN (08:28)
[2017-02-18] MEDS: ENOXAPARIN 40 MG/0.4 ML SYRINGE SUBCUT SCH (10:18)
[2017-02-18 15:32] VITALS: BP 135/82
== END 2017-02-18 16:54 | disposition home or self-care (01) | DRG 638 ==
LOC: EDBD → EDUNIT# → N.ED 07:23 → SUATTDRO 09:25 → N.EDINP 09:25 → N.ICU 10:50 → N.2E 02-17 12:11
PROVIDERS: ADMIT Internal Medicine Nephrology; ATTEND Internal Medicine Infectious Disease

== ENCOUNTER 2017-03-09 18:50 | Inpatient (IN) ==
[2017-03-09] MEDS ORDERED: SODIUM CHLORIDE 0.9% 1,000 ML IV ONE ×2 (19:41→21:33)
[2017-03-09 20:00] LABS: Basophils # 0.1 10*3/uL (0.0-0.2); Basophils % 0.4 % (0.0-0.8); Hematocrit 38.3 VOL% (35.7-47.0); Hemoglobin 10.4 GM/DL (12.0-16.0); Immature Granulocytes % 0.4 %; Immature Granulocytes Absolute 0.06 #; Lymphocytes # 0.7 10*3/uL (1.4-4.0); Lymphocytes % 5.3 % (21.3-54.2); Mean Corpuscular HGB Conc 27.2 GM/DL (32-36); Mean Corpuscular Hemoglobin 21 PG (27-34); Mean Corpuscular Volume 78.2 FL (87-102); Mean Platelet Volume 10.4 FL (9.6-12.0); Monocytes # 0.4 10*3/uL (0.11-0.8); Monocytes % 3.1 % (1.7-12.7); Neutrophils # 12.4 10*3/uL (1.4-7.4); Neutrophils % 90.8 % (38.7-73.9); Platelet Count 440 T/CUMM (130-400); Red Cell Distribution Width 17.9 % (9.3-17.3); White Blood Count 13.7 T/CUMM (4-12)
[2017-03-09 20:26] LABS: VBG Base Excess -20.4 MEQ/L (0-4); VBG HCO3 6.2 MEQ/L (24-28); VBG Oxygen Saturation 78.1 %; VBG PCO2 17.6 MMHG (41-51); VBG PH 7.164; VBG PO2 48.2 MMHG (17-40)
[2017-03-09] MEDS ORDERED: METOCLOPRAMIDE 10 MG/2 ML VIAL IV STA (20:32)
[2017-03-09] MEDS ORDERED: diphenhydrAMINE 50 MG/1 ML VIAL IV STA (20:32)
[2017-03-09] MEDS ORDERED: INSULIN REGULAR 100 UNIT/ML IV STA (20:32)
[2017-03-09] MEDS ORDERED: METOCLOPRAMIDE 10 MG/2 ML VIAL ONE (20:44)
[2017-03-09] MEDS ORDERED: INSULIN REGULAR 100 UNIT/ML ONE (20:45)
[2017-03-09] MEDS ORDERED: diphenhydrAMINE 50 MG/1 ML VIAL ONE (20:46)
[2017-03-09] MEDS ORDERED: INSULIN REGULAR DRIP 100 ML IV SCH ×2 (21:00→23:00)
[2017-03-09 21:06] LABS: Albumin 4.2 G/DL (3.4-5.0); Bilirubin,Total 0.5 MG/DL (0.2-1.0); Calcium 9.3 MG/DL (8.5-10.1); Osmolality,Calculated 297.3 MOS/KG (273-304); Potassium 4.3 MMOL/L (3.5-5.1); Total Protein 8.5 G/DL (6.4-8.3)
[2017-03-09] MEDS ORDERED: SODIUM CHLORIDE 0.9% 1,000 ML IV STA (22:02)
[2017-03-09] MEDS ORDERED: SODIUM PHOSPHATE INJ 12.5 MMOL in SODIUM CHLORIDE 0.9% 250 ML IV PRN (22:43)
[2017-03-09] MEDS ORDERED: MAGNESIUM SULF RIDER 2 GM in PREMIX 1 EACH IV PRN (22:43)
[2017-03-09] MEDS ORDERED: POTASSIUM CHLORIDE RIDER 10 MEQ in PREMIX 1 EACH IV PRN (22:43)
[2017-03-09] MEDS ORDERED: SODIUM BICARB INJ 100 MEQ in STERILE WATER INJ 400 ML IV PRN (22:43)
[2017-03-09] MEDS ORDERED: DEXTROSE 50% 25 GM/50 ML VIAL IV PRN ×2 (22:43)
[2017-03-09] MEDS ORDERED: ALBUTEROL 2.5 MG/3 ML NEB RESP TX PRN (23:37)
[2017-03-09] MEDS ORDERED: HYDROmorphone 2 MG/1 ML VIAL ONE (23:38)
[2017-03-09] MEDS: HYDROmorphone 2 MG/1 ML VIAL IV PRN (23:40)
[2017-03-09 23:45] LABS: Osmolality,Calculated 301.7 MOS/KG (273-304); Potassium 4.3 MMOL/L (3.5-5.1)
[2017-03-09] MEDS ORDERED: ONDANSETRON 4 MG/2 ML VIAL IV PRN (23:46)
[2017-03-10] MEDS: ENOXAPARIN 40 MG/0.4 ML SYRINGE SUBCUT SCH (00:48)
[2017-03-10] MEDS: POTASSIUM CHLORIDE INJ 10 MEQ in SODIUM CHLORIDE 0.9% 1,000 ML IV SCH ×4 (01:00→11:38)
[2017-03-10 01:47] LABS: Apearance,Urine CLOUDY (Clear); Bilirubin,Urine Negative (Negative); Blood, Urine Moderate mg/dL (Negative); Glucose,Urine (UA) >=500 mg/dL (Negative); Ketones,Urine 80 mg/dL (Negative); Nitrite,Urine Negative (Negative); Protein,Urine 30 MG/DL; RBC,Urine 2 /HPF (0-4); Squamous Epithelial Cell,Urine Occasional /HPF (0-10); Urine Color Straw (Yellow); Urine Specific Gravity 1.024 (1.001-1.035); Urine Urobilinogen < 2.0 EU/DL (0.2-1.0)
[2017-03-10 01:58] LABS: Bacteria,Urine Few /HPF (Few); WBC,Urine 2 /HPF (0-6)
[2017-03-10] MEDS: DEXTROSE 5% NACL 0.9% 1,000 ML IV SCH ×4 (02:03→14:11)
[2017-03-10] MEDS: POTASSIUM CHLORIDE INJ 10 MEQ in DEXTROSE 5% NACL 0.9% 1,000 ML IV SCH ×3 (03:39→11:40)
[2017-03-10 03:42] LABS: ABG Base Excess -15.1 MMOL/L (-2.5-2.5); ABG HCO3 12.8 MMOL/L (20-26); ABG Oxygen Saturation 98.5 % (95-100); ABG PH 7.262 (7.35-7.45); ABG TCO2 10.1 MMOL/L (23-27); Allen Test Positive; Pt O2 Delivery Device Room Air
[2017-03-10] MEDS ORDERED: SODIUM CHLORIDE 0.9% 1,000 ML IV SCH (03:43)
[2017-03-10 05:42] LABS: Basophils % 0.3 % (0.0-0.8); Hemoglobin 7.6 GM/DL (12.0-16.0); Immature Granulocytes % 0.5 %; Immature Granulocytes Absolute 0.07 #; Mean Corpuscular HGB Conc 27.1 GM/DL (32-36); Mean Corpuscular Hemoglobin 21 PG (27-34); Mean Corpuscular Volume 76.9 FL (87-102); Mean Platelet Volume 10.4 FL (9.6-12.0); Monocytes # 1.2 10*3/uL (0.11-0.8); Monocytes % 7.8 % (1.7-12.7); Neutrophils % 78.4 % (38.7-73.9); Platelet Count 395 T/CUMM (130-400); Red Blood Count 3.64 MC/CUMM (3.8-5.5); Red Cell Distribution Width 17.5 % (9.3-17.3); White Blood Count 15.3 T/CUMM (4-12)
[2017-03-10 06:12] LABS: Calcium 7.7 MG/DL (8.5-10.1); Magnesium 1.7 MG/DL (1.8-2.4); Osmolality,Calculated 291.6 MOS/KG (273-304); Phosphorous 1.8 MG/DL (2.5-4.9); Potassium 3.8 MMOL/L (3.5-5.1)
[2017-03-10 06:14] LABS: Calcium 7.7 MG/DL (8.5-10.1); Osmolality,Calculated 295.3 MOS/KG (273-304); Potassium 3.9 MMOL/L (3.5-5.1)
[2017-03-10] MEDS ORDERED: POTASSIUM CHLORIDE 20 MEQ/15 ML UDCUP PER TUBE PRN (06:28)
[2017-03-10 06:35] LABS: Burr Cells Slight; Macrocytosis 1+; Polychromasia Slight; Spherocytes Few
[2017-03-10] MEDS: POTASSIUM CHLORIDE 20 MEQ/15 ML UDCUP PER TUBE PRN ×3 (06:56→14:10)
[2017-03-10 11:21] LABS: Calcium 7.4 MG/DL (8.5-10.1); Osmolality,Calculated 290.4 MOS/KG (273-304); Potassium 3.4 MMOL/L (3.5-5.1)
[2017-03-10] MEDS: DEXT 5% NACL 0.45% KCL 20 MEQ 20 MEQ/1,000 ML BAG IV SCH ×2 (11:41→15:51)
[2017-03-10] MEDS ORDERED: NOREPINEPHRINE 4 MG/4 ML VIAL IV ONE (13:26)
[2017-03-10] MEDS: SODIUM CHLORIDE 0.45% 1,000 ML IV SCH ×2 (15:51→16:38)
[2017-03-10 15:53] LABS: Calcium 7.4 MG/DL (8.5-10.1); Osmolality,Calculated 283.1 MOS/KG (273-304); Potassium 4.1 MMOL/L (3.5-5.1)
[2017-03-10] MEDS ORDERED: INSULIN GLARGINE 100 UNIT/ML SUBCUT ONE (16:28)
[2017-03-10] MEDS: INSULIN REGULAR 100 UNIT/ML SUBCUT SCH ×3 (16:39→21:15)
[2017-03-10 19:21] LABS: Calcium 7.4 MG/DL (8.5-10.1); Osmolality,Calculated 278.4 MOS/KG (273-304); Potassium 3.8 MMOL/L (3.5-5.1)
[2017-03-11] MEDS: ENOXAPARIN 40 MG/0.4 ML SYRINGE SUBCUT SCH ×2 (01:10→23:33)
[2017-03-11] MEDS: SODIUM CHLORIDE 0.45% 1,000 ML IV SCH ×5 (01:31→23:33)
[2017-03-11] MEDS: INSULIN REGULAR 100 UNIT/ML SUBCUT SCH ×6 (01:32→20:42)
[2017-03-11 05:23] LABS: Magnesium 1.8 MG/DL (1.8-2.4); Osmolality,Calculated 274.4 MOS/KG (273-304); Potassium 3.4 MMOL/L (3.5-5.1)
[2017-03-11 06:06] LABS: Basophils % 0.6 % (0.0-0.8); Eosinophils # 0.1 10*3/uL (0.0-0.87); Eosinophils % 1.3 % (0.00-10.9); Hematocrit 26.1 VOL% (35.7-47.0); Hemoglobin 7.6 GM/DL (12.0-16.0); Immature Granulocytes % 0.3 %; Immature Granulocytes Absolute 0.02 #; Lymphocytes # 1.9 10*3/uL (1.4-4.0); Lymphocytes % 26.5 % (21.3-54.2); Mean Corpuscular HGB Conc 29.1 GM/DL (32-36); Mean Corpuscular Hemoglobin 21 PG (27-34); Mean Corpuscular Volume 73.5 FL (87-102); Mean Platelet Volume 10.4 FL (9.6-12.0); Monocytes # 0.6 10*3/uL (0.11-0.8); Monocytes % 7.8 % (1.7-12.7); Neutrophils # 4.5 10*3/uL (1.4-7.4); Neutrophils % 63.5 % (38.7-73.9); Platelet Count 325 T/CUMM (130-400); Red Blood Count 3.55 MC/CUMM (3.8-5.5); Red Cell Distribution Width 17.7 % (9.3-17.3)
[2017-03-11] MEDS: POTASSIUM CHLORIDE 20 MEQ/15 ML UDCUP PER TUBE PRN ×2 (06:42→08:54)
[2017-03-11] MEDS ORDERED: POTASSIUM CHLORIDE 20 MEQ TABLET PO PRN (09:53)
[2017-03-12] MEDS: INSULIN REGULAR 100 UNIT/ML SUBCUT SCH ×6 (00:48→20:59)
[2017-03-12 05:02] LABS: Basophils % 0.6 % (0.0-0.8); Eosinophils # 0.1 10*3/uL (0.0-0.87); Eosinophils % 1.3 % (0.00-10.9); Hematocrit 26.3 VOL% (35.7-47.0); Hemoglobin 7.7 GM/DL (12.0-16.0); Immature Granulocytes % 0.3 %; Immature Granulocytes Absolute 0.02 #; Lymphocytes # 2.5 10*3/uL (1.4-4.0); Lymphocytes % 36.2 % (21.3-54.2); Mean Corpuscular HGB Conc 29.3 GM/DL (32-36); Mean Corpuscular Hemoglobin 21 PG (27-34); Mean Corpuscular Volume 73.1 FL (87-102); Monocytes # 0.6 10*3/uL (0.11-0.8); Monocytes % 9.3 % (1.7-12.7); NRBC # 0.02 10*3/uL; Neutrophils # 3.6 10*3/uL (1.4-7.4); Neutrophils % 52.3 % (38.7-73.9); Platelet Count 299 T/CUMM (130-400); White Blood Count 6.9 T/CUMM (4-12)
[2017-03-12 05:38] LABS: Calcium 8.2 MG/DL (8.5-10.1); Magnesium 1.8 MG/DL (1.8-2.4); Potassium 3.2 MMOL/L (3.5-5.1)
[2017-03-12] MEDS: SODIUM CHLORIDE 0.45% 1,000 ML IV SCH ×3 (06:28→21:00)
[2017-03-12] MEDS: POTASSIUM CHLORIDE 20 MEQ/15 ML UDCUP PER TUBE PRN ×4 (10:04→17:21)
[2017-03-12] MEDS ORDERED: PROPOFOL 200 MG/20 ML VIAL IV ONE (14:50)
[2017-03-12] MEDS ORDERED: LIDOCAINE 2% 5 ML VIAL ONE (14:50)
[2017-03-12] MEDS: PANTOPRAZOLE 40 MG VIAL IV SCH (20:59)
[2017-03-13] MEDS: INSULIN REGULAR 100 UNIT/ML SUBCUT SCH ×5 (05:06→21:35)
[2017-03-13] MEDS: ENOXAPARIN 40 MG/0.4 ML SYRINGE SUBCUT SCH (05:06)
[2017-03-13 05:54] LABS: Basophils % 0.5 % (0.0-0.8); Eosinophils # 0.1 10*3/uL (0.0-0.87); Eosinophils % 1.1 % (0.00-10.9); Hematocrit 25.7 VOL% (35.7-47.0); Hemoglobin 7.4 GM/DL (12.0-16.0); Immature Granulocytes % 0.2 %; Immature Granulocytes Absolute 0.01 #; Lymphocytes # 1.9 10*3/uL (1.4-4.0); Lymphocytes % 35.3 % (21.3-54.2); Mean Corpuscular HGB Conc 28.8 GM/DL (32-36); Mean Corpuscular Hemoglobin 21 PG (27-34); Mean Corpuscular Volume 73.6 FL (87-102); Mean Platelet Volume 10.3 FL (9.6-12.0); Monocytes # 0.5 10*3/uL (0.11-0.8); Monocytes % 8.5 % (1.7-12.7); Neutrophils % 54.4 % (38.7-73.9); Platelet Count 280 T/CUMM (130-400); Red Blood Count 3.49 MC/CUMM (3.8-5.5); Red Cell Distribution Width 17.9 % (9.3-17.3); White Blood Count 5.5 T/CUMM (4-12)
[2017-03-13 06:14] LABS: Anisocytosis 1+; Hypochromasia 1+; Microcytosis 1+; Platelet Estimate Normal
[2017-03-13 06:21] LABS: Calcium 7.9 MG/DL (8.5-10.1); Magnesium 1.6 MG/DL (1.8-2.4); Osmolality,Calculated 279.5 MOS/KG (273-304); Potassium 3.6 MMOL/L (3.5-5.1)
[2017-03-13] MEDS: PANTOPRAZOLE 40 MG VIAL IV SCH ×2 (09:12→21:35)
[2017-03-13] MEDS: SODIUM CHLORIDE 0.45% 1,000 ML IV SCH ×2 (16:31)
[2017-03-14] MEDS: HYDROmorphone 2 MG/1 ML VIAL IV PRN ×2 (00:37→18:46)
[2017-03-14] MEDS: INSULIN REGULAR 100 UNIT/ML SUBCUT SCH ×6 (00:41→21:18)
[2017-03-14] MEDS: SODIUM CHLORIDE 0.45% 1,000 ML IV SCH ×4 (00:41→21:18)
[2017-03-14 05:45] LABS: Basophils % 0.3 % (0.0-0.8); Eosinophils # 0.1 10*3/uL (0.0-0.87); Eosinophils % 0.9 % (0.00-10.9); Hematocrit 24.7 VOL% (35.7-47.0); Immature Granulocytes % 0.5 %; Immature Granulocytes Absolute 0.03 #; Lymphocytes # 1.8 10*3/uL (1.4-4.0); Lymphocytes % 28.6 % (21.3-54.2); Mean Corpuscular HGB Conc 28.3 GM/DL (32-36); Mean Corpuscular Hemoglobin 21 PG (27-34); Mean Corpuscular Volume 74.8 FL (87-102); Mean Platelet Volume 10.2 FL (9.6-12.0); Monocytes # 0.5 10*3/uL (0.11-0.8); Neutrophils % 61.7 % (38.7-73.9); Platelet Count 244 T/CUMM (130-400); Red Cell Distribution Width 17.9 % (9.3-17.3); White Blood Count 6.4 T/CUMM (4-12)
[2017-03-14 06:07] LABS: Hypochromasia 1+; Microcytosis 1+
[2017-03-14 06:08] LABS: Platelet Estimate Normal; Spherocytes Few
[2017-03-14 06:09] LABS: Anisocytosis 1+; Ovalocytes Slight
[2017-03-14] MEDS: PANTOPRAZOLE 40 MG VIAL IV SCH ×2 (11:13→21:14)
[2017-03-14] MEDS ORDERED: SODIUM CHLORIDE 0.9% 1,000 ML IV PRN (22:04)
[2017-03-14] MEDS ORDERED: ACETAMINOPHEN 325 MG TABLET PO PRN (22:04)
[2017-03-14] MEDS ORDERED: diphenhydrAMINE CAP 25 MG CAPSULE PO PRN (22:04)
[2017-03-15] MEDS: INSULIN REGULAR 100 UNIT/ML SUBCUT SCH ×4 (00:31→12:27)
[2017-03-15] MEDS: METOCLOPRAMIDE 10 MG/2 ML VIAL IV SCH ×3 (00:31→11:54)
[2017-03-15] MEDS: SODIUM CHLORIDE 0.45% 1,000 ML IV SCH (06:16)
[2017-03-15] MEDS ORDERED: PANTOPRAZOLE 40 MG TABLET PO SCH (07:00)
[2017-03-15 09:13] LABS: Basophils % 0.6 % (0.0-0.8); Eosinophils # 0.1 10*3/uL (0.0-0.87); Eosinophils % 1.4 % (0.00-10.9); Hematocrit 33.4 VOL% (35.7-47.0); Immature Granulocytes % 0.1 %; Immature Granulocytes Absolute 0.01 #; Lymphocytes # 1.6 10*3/uL (1.4-4.0); Lymphocytes % 23.3 % (21.3-54.2); Mean Corpuscular HGB Conc 29.9 GM/DL (32-36); Mean Corpuscular Hemoglobin 23 PG (27-34); Mean Corpuscular Volume 75.6 FL (87-102); Mean Platelet Volume 10.5 FL (9.6-12.0); Monocytes # 0.6 10*3/uL (0.11-0.8); Monocytes % 8.1 % (1.7-12.7); Neutrophils # 4.6 10*3/uL (1.4-7.4); Neutrophils % 66.5 % (38.7-73.9); Platelet Count 264 T/CUMM (130-400); Red Cell Distribution Width 17.7 % (9.3-17.3); White Blood Count 6.9 T/CUMM (4-12)
[2017-03-15 09:23] LABS: Red Blood Count 4.42 MC/CUMM (3.8-5.5)
[2017-03-15 10:22] LABS: Calcium 8.4 MG/DL (8.5-10.1); Potassium 4.3 MMOL/L (3.5-5.1)
[2017-03-15 11:21] LABS: Basophils % 0.4 % (0.0-0.8); Eosinophils # 0.1 10*3/uL (0.0-0.87); Eosinophils % 0.6 % (0.00-10.9); Hematocrit 34.7 VOL% (35.7-47.0); Hemoglobin 10.3 GM/DL (12.0-16.0); Immature Granulocytes % 0.4 %; Immature Granulocytes Absolute 0.04 #; Lymphocytes % 10.7 % (21.3-54.2); Mean Corpuscular HGB Conc 29.7 GM/DL (32-36); Mean Corpuscular Hemoglobin 23 PG (27-34); Mean Corpuscular Volume 75.9 FL (87-102); Mean Platelet Volume 10.3 FL (9.6-12.0); Monocytes # 0.5 10*3/uL (0.11-0.8); Monocytes % 5.4 % (1.7-12.7); Neutrophils # 7.5 10*3/uL (1.4-7.4); Neutrophils % 82.5 % (38.7-73.9); Platelet Count 270 T/CUMM (130-400); Red Blood Count 4.57 MC/CUMM (3.8-5.5); Red Cell Distribution Width 17.6 % (9.3-17.3); White Blood Count 9.1 T/CUMM (4-12)
[2017-03-15 11:25] VITALS: BP 142/92
== END 2017-03-15 14:35 | disposition home or self-care (01) | DRG 638 ==
LOC: EDUNIT# → EDBD → N.ED 18:50 → N.EDINP 21:37 → SUATTDRO 21:37 → N.ICU 22:08 → N.3E 03-11 13:12
PROVIDERS: ADMIT Internal Medicine; ATTEND Hospitalist

== ENCOUNTER 2017-04-10 12:18 | Inpatient (IN) ==
[2017-04-10] MEDS ORDERED: SODIUM CHLORIDE 0.9% 2,000 ML IV STA (12:50)
[2017-04-10] MEDS ORDERED: ONDANSETRON 4 MG/2 ML VIAL IV STA (12:50)
[2017-04-10] MEDS ORDERED: ONDANSETRON 4 MG/2 ML VIAL ONE ×2 (13:03→13:40)
[2017-04-10 13:11] LABS: Basophils # 0.1 10*3/uL (0.0-0.2); Basophils % 0.4 % (0.0-0.8); Hematocrit 45.4 VOL% (35.7-47.0); Hemoglobin 12.6 GM/DL (12.0-16.0); Immature Granulocytes % 0.7 %; Immature Granulocytes Absolute 0.12 #; Lymphocytes # 1.3 10*3/uL (1.4-4.0); Lymphocytes % 7.2 % (21.3-54.2); Mean Corpuscular HGB Conc 27.8 GM/DL (32-36); Mean Corpuscular Hemoglobin 24 PG (27-34); Mean Corpuscular Volume 85.5 FL (87-102); Mean Platelet Volume 11.6 FL (9.6-12.0); Monocytes # 0.7 10*3/uL (0.11-0.8); Monocytes % 3.7 % (1.7-12.7); Platelet Count 404 T/CUMM (130-400); Red Blood Count 5.31 MC/CUMM (3.8-5.5); Red Cell Distribution Width 19.3 % (9.3-17.3); White Blood Count 18.2 T/CUMM (4-12)
[2017-04-10 13:37] LABS: Albumin 4.1 G/DL (3.4-5.0); Bilirubin,Total 0.9 MG/DL (0.2-1.0); Calcium 9.2 MG/DL (8.5-10.1); Osmolality,Calculated 298.1 MOS/KG (273-304); Total Protein 8.9 G/DL (6.4-8.3)
[2017-04-10 13:38] LABS: Apearance,Urine CLEAR (Clear); Bacteria,Urine Occasional /HPF (Few); Bilirubin,Urine Negative (Negative); Blood, Urine Small mg/dL (Negative); Glucose,Urine (UA) >=500 mg/dL (Negative); Hyaline Casts,Urine 71 /LPF (0-3); Ketones,Urine 80 mg/dL (Negative); Mucus,Urine Occasional /LPF (Occasional); Nitrite,Urine Negative (Negative); Protein,Urine 100 MG/DL; RBC,Urine 5 /HPF (0-4); Squamous Epithelial Cell,Urine Occasional /HPF (0-10); Urine Color Straw (Yellow); Urine Urobilinogen < 2.0 EU/DL (0.2-1.0); WBC,Urine 4 /HPF (0-6)
[2017-04-10 13:49] LABS: Potassium 5.9 MMOL/L (3.5-5.1)
[2017-04-10] MEDS ORDERED: INSULIN REGULAR 100 UNIT/ML ONE (14:04)
[2017-04-10] MEDS ORDERED: INSULIN REGULAR 100 UNIT/ML IV STA (14:04)
[2017-04-10] MEDS ORDERED: MAGNESIUM SULF RIDER 2 GM in PREMIX 1 EACH IV PRN (14:14)
[2017-04-10] MEDS ORDERED: SODIUM BICARB INJ 100 MEQ in STERILE WATER INJ 400 ML IV PRN (14:14)
[2017-04-10] MEDS ORDERED: INSULIN REGULAR 100 UNIT/ML IV ONE (14:14)
[2017-04-10] MEDS ORDERED: SODIUM PHOSPHATE INJ 13.6 MMOL in SODIUM CHLORIDE 0.9% 250 ML IV PRN (14:14)
[2017-04-10] MEDS ORDERED: ALBUTEROL 2.5 MG/3 ML NEB RESP TX PRN (14:14)
[2017-04-10] MEDS ORDERED: SODIUM CHLORIDE 0.9% 1,000 ML IV ONE (14:14)
[2017-04-10] MEDS ORDERED: POTASSIUM CHLORIDE RIDER 10 MEQ in PREMIX 1 EACH IV PRN (14:14)
[2017-04-10] MEDS ORDERED: ONDANSETRON 4 MG/2 ML VIAL IV PRN (14:14)
[2017-04-10] MEDS ORDERED: MAGNESIUM SULF RIDER 4 GM in PREMIX 1 EACH IV PRN (14:14)
[2017-04-10] MEDS ORDERED: DEXTROSE 50% 25 GM/50 ML VIAL IV PRN ×2 (14:14)
[2017-04-10] MEDS ORDERED: ACETAMINOPHEN 325 MG TABLET PO PRN (14:14)
[2017-04-10] MEDS ORDERED: cefTRIAXone 1,000 MG in SODIUM CHLORIDE 0.9% 100 ML IV SCH (14:30)
[2017-04-10 14:47] LABS: Magnesium 2.4 MG/DL (1.8-2.4)
[2017-04-10] MEDS ORDERED: LEVOFLOXACIN INJ 150 ML IV ONE (16:08)
[2017-04-10] MEDS ORDERED: PANTOPRAZOLE 40 MG VIAL IV ONE (16:08)
[2017-04-10] MEDS: ENOXAPARIN 40 MG/0.4 ML SYRINGE SUBCUT SCH (16:16)
[2017-04-10] MEDS: PANTOPRAZOLE 40 MG VIAL IV SCH (16:23)
[2017-04-10] MEDS: LEVOFLOXACIN INJ 750 MG in PREMIX 1 EACH IV SCH (16:25)
[2017-04-10] MEDS: INSULIN REGULAR DRIP 100 ML IV SCH (16:59)
[2017-04-10 17:25] LABS: ABG HCO3 8.1 MMOL/L (20-26); ABG Oxygen Saturation 99.2 % (95-100); ABG TCO2 4.2 MMOL/L (23-27)
[2017-04-10 17:28] LABS: ABG PH 7.184 (7.35-7.45)
[2017-04-10 17:48] LABS: Calcium 7.7 MG/DL (8.5-10.1); Osmolality,Calculated 299.7 MOS/KG (273-304); Potassium 4.4 MMOL/L (3.5-5.1)
[2017-04-10] MEDS: SODIUM CHLORIDE 0.9% 1,000 ML IV SCH (18:48)
[2017-04-10] MEDS ORDERED: SODIUM CHLORIDE 0.9% 1,000 ML IV SCH (19:14)
[2017-04-10 19:23] LABS: Calcium 7.7 MG/DL (8.5-10.1); Osmolality,Calculated 294.7 MOS/KG (273-304); Potassium 4.4 MMOL/L (3.5-5.1)
[2017-04-10] MEDS: DEXT 5% NACL 0.45% KCL 20 MEQ 20 MEQ/1,000 ML BAG IV SCH (19:43)
[2017-04-10 20:13] LABS: ABG Base Excess -15.1 MMOL/L (-2.5-2.5); ABG HCO3 9.9 MMOL/L (20-26); ABG Oxygen Saturation 98.2 % (95-100); ABG PCO2 21.4 MM HG (35-48); ABG PH 7.281 (7.35-7.45); ABG PO2 124.5 MM HG (80-95); ABG TCO2 10.5 MMOL/L (23-27)
[2017-04-10] MEDS: ZALEPLON 5 MG CAPSULE PO PRN (21:22)
[2017-04-10 23:54] LABS: Osmolality,Calculated 294.6 MOS/KG (273-304); Potassium 3.9 MMOL/L (3.5-5.1)
[2017-04-11] MEDS: DEXT 5% NACL 0.45% KCL 20 MEQ 20 MEQ/1,000 ML BAG IV SCH ×5 (00:25→18:56)
[2017-04-11 02:18] LABS: Basophils % 0.2 % (0.0-0.8); Eosinophils % 0.1 % (0.00-10.9); Hematocrit 32.6 VOL% (35.7-47.0); Hemoglobin 9.6 GM/DL (12.0-16.0); Immature Granulocytes % 0.4 %; Immature Granulocytes Absolute 0.04 #; Lymphocytes # 1.3 10*3/uL (1.4-4.0); Mean Corpuscular HGB Conc 29.4 GM/DL (32-36); Mean Corpuscular Hemoglobin 24 PG (27-34); Mean Corpuscular Volume 80.5 FL (87-102); Mean Platelet Volume 10.1 FL (9.6-12.0); Monocytes # 0.6 10*3/uL (0.11-0.8); Neutrophils # 8.2 10*3/uL (1.4-7.4); Neutrophils % 80.3 % (38.7-73.9); Platelet Count 290 T/CUMM (130-400); Red Blood Count 4.05 MC/CUMM (3.8-5.5); Red Cell Distribution Width 18.7 % (9.3-17.3); White Blood Count 10.2 T/CUMM (4-12)
[2017-04-11 02:51] LABS: Calcium 7.8 MG/DL (8.5-10.1); Magnesium 1.7 MG/DL (1.8-2.4); Osmolality,Calculated 289.6 MOS/KG (273-304); Potassium 3.4 MMOL/L (3.5-5.1)
[2017-04-11 04:24] LABS: ABG Base Excess -10.9 MMOL/L (-2.5-2.5); ABG HCO3 15.7 MMOL/L (20-26); ABG Oxygen Saturation 99.7 % (95-100); ABG PCO2 25.9 MM HG (35-48); ABG PH 7.334 (7.35-7.45); ABG TCO2 12.8 MMOL/L (23-27)
[2017-04-11 07:01] LABS: Calcium 7.1 MG/DL (8.5-10.1); Osmolality,Calculated 284.8 MOS/KG (273-304); Potassium 3.3 MMOL/L (3.5-5.1)
[2017-04-11] MEDS ORDERED: POTASSIUM CHLORIDE INJ 40 MEQ in SODIUM CHLORIDE 0.9% 500 ML IV SCH (09:00)
[2017-04-11] MEDS ORDERED: SODIUM PHOSPHATE INJ 15 MMOL in SODIUM CHLORIDE 0.9% 250 ML IV ONE (09:30)
[2017-04-11 10:55] LABS: Calcium 7.6 MG/DL (8.5-10.1); Potassium 3.3 MMOL/L (3.5-5.1)
[2017-04-11] MEDS: SODIUM CHLORIDE 0.45% 1,000 ML IV SCH ×3 (11:06→23:34)
[2017-04-11] MEDS: ENOXAPARIN 40 MG/0.4 ML SYRINGE SUBCUT SCH (14:11)
[2017-04-11] MEDS: PANTOPRAZOLE 40 MG VIAL IV SCH (14:11)
[2017-04-11] MEDS: METOCLOPRAMIDE 5 MG TABLET PO SCH ×3 (14:12→20:48)
[2017-04-11] MEDS: LEVOFLOXACIN INJ 750 MG in PREMIX 1 EACH IV SCH (17:48)
[2017-04-11 18:03] LABS: Calcium 6.8 MG/DL (8.5-10.1); Osmolality,Calculated 277.4 MOS/KG (273-304); Potassium 3.8 MMOL/L (3.5-5.1)
[2017-04-11 20:21] LABS: Osmolality,Calculated 274.5 MOS/KG (273-304); Potassium 3.3 MMOL/L (3.5-5.1)
[2017-04-11] MEDS: ZALEPLON 5 MG CAPSULE PO PRN (20:48)
[2017-04-11] MEDS ORDERED: POTASSIUM CHLORIDE INJ 40 MEQ in SODIUM CHLORIDE 0.9% 500 ML IV PRN (21:10)
[2017-04-11] MEDS ORDERED: DEXT 5% NACL 0.45% KCL 40 MEQ 40 MEQ/1,000 ML BAG IV SCH (21:30)
[2017-04-12 00:58] LABS: Calcium 7.2 MG/DL (8.5-10.1); Osmolality,Calculated 279.3 MOS/KG (273-304); Potassium 3.8 MMOL/L (3.5-5.1)
[2017-04-12] MEDS: INSULIN REGULAR DRIP 100 ML IV SCH (01:36)
[2017-04-12 05:31] LABS: Calcium 7.8 MG/DL (8.5-10.1); Osmolality,Calculated 274.4 MOS/KG (273-304); Potassium 3.6 MMOL/L (3.5-5.1)
[2017-04-12] MEDS: DEXT 5% NACL 0.45% KCL 20 MEQ 20 MEQ/1,000 ML BAG IV SCH ×2 (06:05→15:21)
[2017-04-12] MEDS ORDERED: POTASSIUM CHLORIDE INJ 20 MEQ in SODIUM CHLORIDE 0.9% 250 ML IV ONE (06:30)
[2017-04-12] MEDS: METOCLOPRAMIDE 5 MG TABLET PO SCH ×4 (08:16→21:12)
[2017-04-12 10:28] LABS: Osmolality,Calculated 271.7 MOS/KG (273-304); Potassium 3.8 MMOL/L (3.5-5.1)
[2017-04-12] MEDS ORDERED: DEXTROSE 50% 25 GM/50 ML VIAL IV PRN (11:17)
[2017-04-12] MEDS ORDERED: GLUCAGON 1 MG VIAL IM PRN (11:17)
[2017-04-12] MEDS: INSULIN REGULAR 100 UNIT/ML SUBCUT SCH ×3 (11:36→21:13)
[2017-04-12] MEDS: SODIUM CHLORIDE 0.45% 1,000 ML IV SCH ×2 (13:00→23:00)
[2017-04-12] MEDS ORDERED: INSULIN ASPART PROTAMINE/ASPART 70/30 100 UNIT/ML SUBCUT SCH ×2 (13:00→16:30)
[2017-04-12] MEDS: ENOXAPARIN 40 MG/0.4 ML SYRINGE SUBCUT SCH (14:52)
[2017-04-12] MEDS: LEVOFLOXACIN INJ 750 MG in PREMIX 1 EACH IV SCH (15:49)
[2017-04-12] MEDS: ZALEPLON 5 MG CAPSULE PO PRN (21:24)
[2017-04-13] MEDS: SODIUM CHLORIDE 0.45% 1,000 ML IV SCH ×3 (05:21→16:19)
[2017-04-13 05:59] LABS: Calcium 8.5 MG/DL (8.5-10.1); Magnesium 1.8 MG/DL (1.8-2.4)
[2017-04-13] MEDS ORDERED: INSULIN ASPART PROTAMINE/ASPART 70/30 100 UNIT/ML SUBCUT SCH (07:30)
[2017-04-13] MEDS: INSULIN REGULAR 100 UNIT/ML SUBCUT SCH ×4 (08:26→21:20)
[2017-04-13] MEDS: METOCLOPRAMIDE 5 MG TABLET PO SCH ×4 (08:28→21:19)
[2017-04-13] MEDS: LEVOFLOXACIN 500 MG TABLET PO SCH (08:28)
[2017-04-13] MEDS: PANTOPRAZOLE 40 MG TABLET PO SCH (08:33)
[2017-04-13] MEDS: INSULIN NPH/REGULAR 70/30 100 UNIT/ML SUBCUT SCH ×2 (08:42→16:19)
[2017-04-13] MEDS ORDERED: INFLUENZA VIRUS VACCINE 0.5 ML SYRINGE IM ONE (09:00)
[2017-04-13] MEDS: ENOXAPARIN 40 MG/0.4 ML SYRINGE SUBCUT SCH (13:45)
[2017-04-13] MEDS: SODIUM CHLORIDE 0.9% 1,000 ML IV SCH (14:25)
[2017-04-14] MEDS: SODIUM CHLORIDE 0.45% 1,000 ML IV SCH ×2 (00:19→09:06)
[2017-04-14] MEDS: INSULIN NPH/REGULAR 70/30 100 UNIT/ML SUBCUT SCH ×2 (08:13→16:18)
[2017-04-14] MEDS: INSULIN REGULAR 100 UNIT/ML SUBCUT SCH ×4 (08:13→20:49)
[2017-04-14] MEDS: METOCLOPRAMIDE 5 MG TABLET PO SCH ×4 (08:14→20:39)
[2017-04-14] MEDS: LEVOFLOXACIN 500 MG TABLET PO SCH (08:14)
[2017-04-14] MEDS: PANTOPRAZOLE 40 MG TABLET PO SCH (08:14)
[2017-04-14] MEDS: ENOXAPARIN 40 MG/0.4 ML SYRINGE SUBCUT SCH (20:39)
[2017-04-15] MEDS: INSULIN REGULAR 100 UNIT/ML SUBCUT SCH ×4 (07:30→21:25)
[2017-04-15] MEDS: LEVOFLOXACIN 500 MG TABLET PO SCH (08:10)
[2017-04-15] MEDS: METOCLOPRAMIDE 5 MG TABLET PO SCH ×4 (08:10→21:25)
[2017-04-15] MEDS: PANTOPRAZOLE 40 MG TABLET PO SCH (08:10)
[2017-04-15] MEDS: INSULIN NPH/REGULAR 70/30 100 UNIT/ML SUBCUT SCH ×2 (08:34→16:39)
[2017-04-15] MEDS: ENOXAPARIN 40 MG/0.4 ML SYRINGE SUBCUT SCH (21:24)
[2017-04-16 06:55] LABS: Calcium 8.2 MG/DL (8.5-10.1); Osmolality,Calculated 278.5 MOS/KG (273-304); Potassium 3.9 MMOL/L (3.5-5.1)
[2017-04-16] MEDS: INSULIN NPH/REGULAR 70/30 100 UNIT/ML SUBCUT SCH (09:14)
[2017-04-16] MEDS: INSULIN REGULAR 100 UNIT/ML SUBCUT SCH ×2 (09:15→11:40)
[2017-04-16] MEDS: LEVOFLOXACIN 500 MG TABLET PO SCH (09:17)
[2017-04-16] MEDS: PANTOPRAZOLE 40 MG TABLET PO SCH (09:17)
[2017-04-16] MEDS: METOCLOPRAMIDE 5 MG TABLET PO SCH ×2 (09:18→11:40)
[2017-04-16 12:03] VITALS: BP 136/84
== END 2017-04-16 13:00 | disposition home or self-care (01) | DRG 638 ==
LOC: EDUNIT# → EDBD → N.ED 12:18 → SUATTDRO 14:05 → N.EDINP 14:05 → N.CC 16:38 → N.2E 04-13 14:07
PROVIDERS: ADMIT Internal Medicine; ATTEND Family Medicine

== ENCOUNTER 2017-07-11 16:19 | Inpatient (IN) ==
[2017-07-11] MEDS ORDERED: ONDANSETRON 4 MG/2 ML VIAL IV STA (17:07)
[2017-07-11] MEDS ORDERED: SODIUM CHLORIDE 0.9% 1,000 ML IV STA (17:07)
[2017-07-11] MEDS ORDERED: ONDANSETRON 4 MG/2 ML VIAL ONE (17:19)
[2017-07-11 17:56] LABS: Basophils % 0.4 % (0.0-0.8); Eosinophils % 0.1 % (0.00-10.9); Hematocrit 32.2 VOL% (35.7-47.0); Hemoglobin 9.1 GM/DL (12.0-16.0); Immature Granulocytes % 0.3 %; Immature Granulocytes Absolute 0.02 #; Lymphocytes # 0.8 10*3/uL (1.4-4.0); Lymphocytes % 12.2 % (21.3-54.2); Mean Corpuscular HGB Conc 28.3 GM/DL (32-36); Mean Corpuscular Hemoglobin 23 PG (27-34); Mean Corpuscular Volume 80.5 FL (87-102); Mean Platelet Volume 10.6 FL (9.6-12.0); Monocytes # 0.3 10*3/uL (0.11-0.8); Monocytes % 4.5 % (1.7-12.7); Neutrophils # 5.7 10*3/uL (1.4-7.4); Neutrophils % 82.5 % (38.7-73.9); Platelet Count 342 T/CUMM (130-400); Red Cell Distribution Width 16.2 % (9.3-17.3); White Blood Count 6.9 T/CUMM (4-12)
[2017-07-11 18:02] LABS: ABG Base Excess -2.8 MMOL/L (-2.5-2.5); ABG HCO3 22.1 MMOL/L (20-26); ABG Oxygen Saturation 96.7 % (95-100); ABG PCO2 39.4 MM HG (35-48); ABG PH 7.362 (7.35-7.45); ABG PO2 94.8 MM HG (80-95); ABG TCO2 20.6 MMOL/L (23-27)
[2017-07-11 18:16] LABS: Lactic Acid 0.9 MMOL/L (0.4-2.0)
[2017-07-11 18:20] LABS: Apearance,Urine Slightly Hazy (Clear); Bilirubin,Urine Negative (Negative); Blood, Urine Negative (Negative); Calcium Oxalate Crystals,Urine Occasional /HPF (Few); Glucose,Urine (UA) >=500 mg/dL (Negative); Ketones,Urine 80 mg/dL (Negative); Mucus,Urine Occasional /LPF (Occasional); Nitrite,Urine Negative (Negative); Protein,Urine Negative; RBC,Urine 2 /HPF (0-4); Squamous Epithelial Cell,Urine Occasional /HPF (0-10); Urine Color Yellow (Yellow); Urine Urobilinogen < 2.0 EU/DL (0.2-1.0); WBC,Urine 1 /HPF (0-6)
[2017-07-11 18:23] LABS: Alanine Aminotransferase 14 U/L (13-56); Albumin 3.4 G/DL (3.4-5.0); Alkaline Phosphatase 76 U/L (45-117); Amylase 35 U/L (25-115); Aspartate Amino Transferase 16 U/L (0-37); Bilirubin,Total < 0.39 MG/DL (0.2-1.0); Blood Urea Nitrogen 10 MG/DL (7-18); Calcium 8.2 MG/DL (8.5-10.1); Glucose 363 MG/DL (74-106); Osmolality,Calculated 296.1 MOS/KG (273-304); Potassium 3.7 MMOL/L (3.5-5.1); Sodium 142 MMOL/L (136-145); Total Protein 6.8 G/DL (6.4-8.3); Troponin I Only < 0.015 NG/ML (0.00-0.045)
[2017-07-11] MEDS ORDERED: INSULIN REGULAR 100 UNIT/ML IV STA (18:55)
[2017-07-11] MEDS ORDERED: HYDROmorphone 2 MG/1 ML VIAL IV STA (19:20)
[2017-07-11] MEDS ORDERED: PROMETHAZINE 25 MG/1 ML VIAL IM STA (19:21)
[2017-07-11] MEDS ORDERED: PROMETHAZINE 25 MG/1 ML VIAL ONE ×2 (19:23→19:33)
[2017-07-11] MEDS ORDERED: HYDROmorphone 2 MG/1 ML VIAL ONE ×2 (19:23→19:33)
[2017-07-11] MEDS ORDERED: INSULIN REGULAR 100 UNIT/ML ONE ×2 (19:25→19:38)
[2017-07-11] MEDS ORDERED: HYOSCYAMINE 0.5 MG/1 ML AMP ONE (19:26)
[2017-07-11] MEDS ORDERED: HYOSCYAMINE 0.5 MG/1 ML AMP IV STA (19:48)
[2017-07-11] MEDS ORDERED: ACETAMINOPHEN 325 MG TABLET PO PRN (19:56)
[2017-07-11] MEDS ORDERED: HYOSCYAMINE 0.125 MG TABLET PO PRN (20:02)
[2017-07-11] MEDS ORDERED: GLUCAGON 1 MG VIAL IM PRN (20:04)
[2017-07-11] MEDS ORDERED: DEXTROSE 50% 25 GM/50 ML VIAL IV PRN (20:04)
[2017-07-11] MEDS: SODIUM CHLORIDE 0.9% 1,000 ML IV SCH (21:15)
[2017-07-11] MEDS: INSULIN REGULAR 100 UNIT/ML SUBCUT SCH (21:38)
[2017-07-11] MEDS: ENOXAPARIN 40 MG/0.4 ML SYRINGE SUBCUT SCH (21:44)
[2017-07-11 22:17] LABS: Barbiturates Screen,Urine Negative (Negative); Benzodiazepines Screen,Urine Negative (Negative); Cannabinoid Screen,Urine Positive (Negative); Opiate Screen,Urine Negative (Negative); Phencyclidine Screen,Urine Negative (Negative)
[2017-07-11] MEDS: ONDANSETRON 4 MG/2 ML VIAL IV PRN (22:54)
[2017-07-12] MEDS: ONDANSETRON 4 MG/2 ML VIAL IV PRN ×2 (04:14→08:42)
[2017-07-12] MEDS: HYDROmorphone 2 MG/1 ML VIAL IV PRN (04:16)
[2017-07-12 06:19] LABS: Basophils % 0.1 % (0.0-0.8); Hematocrit 32.9 VOL% (35.7-47.0); Hemoglobin 9.2 GM/DL (12.0-16.0); Immature Granulocytes % 0.6 %; Immature Granulocytes Absolute 0.09 #; Lymphocytes # 0.7 10*3/uL (1.4-4.0); Lymphocytes % 4.2 % (21.3-54.2); Mean Corpuscular Hemoglobin 23 PG (27-34); Mean Corpuscular Volume 83.3 FL (87-102); Mean Platelet Volume 10.3 FL (9.6-12.0); Monocytes # 0.2 10*3/uL (0.11-0.8); Monocytes % 1.2 % (1.7-12.7); Neutrophils # 14.9 10*3/uL (1.4-7.4); Neutrophils % 93.9 % (38.7-73.9); Platelet Count 309 T/CUMM (130-400); Red Blood Count 3.95 MC/CUMM (3.8-5.5); Red Cell Distribution Width 16.3 % (9.3-17.3); White Blood Count 15.9 T/CUMM (4-12)
[2017-07-12 06:21] LABS: Hypochromasia 1+; Lymphocytes 5 % (20-55); Segmented Neutrophils 94 % (50-85); Total Cells Counted 100
[2017-07-12 06:22] LABS: Microcytosis 1+; Ovalocytes Slight; Platelet Estimate Normal
[2017-07-12] MEDS: SODIUM CHLORIDE 0.9% 1,000 ML IV SCH ×3 (06:31→21:15)
[2017-07-12 06:39] LABS: Calcium 8.2 MG/DL (8.5-10.1); Osmolality,Calculated 293.7 MOS/KG (273-304); Potassium 3.8 MMOL/L (3.5-5.1)
[2017-07-12] MEDS: PANTOPRAZOLE 40 MG TABLET PO SCH (08:38)
[2017-07-12] MEDS: INSULIN REGULAR 100 UNIT/ML SUBCUT SCH ×5 (08:38→22:10)
[2017-07-12] MEDS: INSULIN NPH/REGULAR 70/30 100 UNIT/ML SUBCUT SCH ×2 (08:38→17:12)
[2017-07-12] MEDS ORDERED: SODIUM CHLORIDE 0.9% 1,000 ML IV ONE (09:00)
[2017-07-12] MEDS ORDERED: SODIUM CHLORIDE 23.4% CONC INJ 38.5 MEQ, SODIUM BICARB INJ 50 MEQ in STERILE WATER INJ ... IV SCH (09:00)
[2017-07-12] MEDS: SODIUM CHLORIDE 23.4% CONC INJ 38.5 MEQ, SODIUM BICARB INJ 150 MEQ in STERILE WATER INJ... IV SCH ×2 (10:02→21:12)
[2017-07-12] MEDS: PROMETHAZINE 25 MG/1 ML VIAL IM PRN (10:47)
[2017-07-12] MEDS: CIPROFLOXACIN INJ 200 MG in PREMIX 1 EACH IV SCH (13:10)
[2017-07-12] MEDS: metroNIDAZOLE INJ 500 MG in PREMIX 1 EACH IV SCH ×2 (14:33→21:12)
[2017-07-12] MEDS: ENOXAPARIN 40 MG/0.4 ML SYRINGE SUBCUT SCH (21:17)
[2017-07-13] MEDS: HYDROmorphone 2 MG/1 ML VIAL IV PRN ×4 (00:03→22:59)
[2017-07-13] MEDS: CIPROFLOXACIN INJ 200 MG in PREMIX 1 EACH IV SCH (00:06)
[2017-07-13 02:40] LABS: Basophils % 0.1 % (0.0-0.8); Hematocrit 26.9 VOL% (35.7-47.0); Immature Granulocytes % 0.8 %; Immature Granulocytes Absolute 0.08 #; Lymphocytes # 1.6 10*3/uL (1.4-4.0); Lymphocytes % 16.3 % (21.3-54.2); Mean Corpuscular HGB Conc 29.7 GM/DL (32-36); Mean Corpuscular Hemoglobin 23 PG (27-34); Mean Corpuscular Volume 77.7 FL (87-102); Mean Platelet Volume 10.5 FL (9.6-12.0); Monocytes # 0.5 10*3/uL (0.11-0.8); Monocytes % 5.5 % (1.7-12.7); Neutrophils # 7.5 10*3/uL (1.4-7.4); Neutrophils % 77.3 % (38.7-73.9); Platelet Count 302 T/CUMM (130-400); Red Blood Count 3.46 MC/CUMM (3.8-5.5); Red Cell Distribution Width 16.6 % (9.3-17.3); White Blood Count 9.8 T/CUMM (4-12)
[2017-07-13] MEDS: INSULIN REGULAR 100 UNIT/ML SUBCUT SCH ×6 (04:21→21:24)
[2017-07-13] MEDS: metroNIDAZOLE INJ 500 MG in PREMIX 1 EACH IV SCH (05:28)
[2017-07-13 06:21] LABS: Calcium 7.5 MG/DL (8.5-10.1); Osmolality,Calculated 282.8 MOS/KG (273-304); Potassium 2.6 MMOL/L (3.5-5.1)
[2017-07-13] MEDS ORDERED: INSULIN NPH 100 UNIT/ML SUBCUT ONE (08:30)
[2017-07-13] MEDS ORDERED: MAGNESIUM SULF RIDER 4 GM in PREMIX 1 EACH IV PRN (09:07)
[2017-07-13] MEDS ORDERED: MAGNESIUM SULF RIDER 2 GM in PREMIX 1 EACH IV PRN (09:07)
[2017-07-13] MEDS: PROMETHAZINE 25 MG/1 ML VIAL IM PRN (09:43)
[2017-07-13] MEDS: PANTOPRAZOLE 40 MG TABLET PO SCH (09:50)
[2017-07-13] MEDS: SODIUM CHLORIDE 23.4% CONC INJ 38.5 MEQ, SODIUM BICARB INJ 150 MEQ in STERILE WATER INJ... IV SCH ×2 (09:52→20:18)
[2017-07-13] MEDS: SODIUM CHLORIDE 0.9% 1,000 ML IV SCH (09:56)
[2017-07-13] MEDS: INSULIN NPH/REGULAR 70/30 100 UNIT/ML SUBCUT SCH ×2 (09:56→18:23)
[2017-07-13] MEDS: POTASSIUM CHLORIDE RIDER 10 MEQ in PREMIX 1 EACH IV PRN ×3 (13:53→15:49)
[2017-07-13] MEDS: ONDANSETRON 4 MG/2 ML VIAL IV PRN ×2 (14:07)
[2017-07-13] MEDS: ENOXAPARIN 40 MG/0.4 ML SYRINGE SUBCUT SCH (20:21)
[2017-07-14] MEDS: SODIUM CHLORIDE 0.9% 1,000 ML IV SCH ×4 (00:41→17:43)
[2017-07-14] MEDS: INSULIN REGULAR 100 UNIT/ML SUBCUT SCH ×6 (02:08→21:54)
[2017-07-14] MEDS: HYDROmorphone 2 MG/1 ML VIAL IV PRN ×4 (04:32→22:02)
[2017-07-14] MEDS: SODIUM CHLORIDE 23.4% CONC INJ 38.5 MEQ, SODIUM BICARB INJ 150 MEQ in STERILE WATER INJ... IV SCH ×2 (06:15→16:39)
[2017-07-14] MEDS: PANTOPRAZOLE 40 MG TABLET PO SCH (09:26)
[2017-07-14] MEDS: INSULIN NPH/REGULAR 70/30 100 UNIT/ML SUBCUT SCH ×2 (09:27→16:18)
[2017-07-14] MEDS: ENOXAPARIN 40 MG/0.4 ML SYRINGE SUBCUT SCH (20:44)
[2017-07-15] MEDS: SODIUM CHLORIDE 0.9% 1,000 ML IV SCH ×2 (01:19→09:32)
[2017-07-15] MEDS: INSULIN REGULAR 100 UNIT/ML SUBCUT SCH ×4 (02:04→14:58)
[2017-07-15] MEDS: HYDROmorphone 2 MG/1 ML VIAL IV PRN ×2 (02:05→09:30)
[2017-07-15] MEDS: SODIUM CHLORIDE 23.4% CONC INJ 38.5 MEQ, SODIUM BICARB INJ 150 MEQ in STERILE WATER INJ... IV SCH ×2 (02:05→12:14)
[2017-07-15] MEDS: INSULIN NPH/REGULAR 70/30 100 UNIT/ML SUBCUT SCH (08:13)
[2017-07-15] MEDS ORDERED: MAGNESIUM CITRATE 300 ML BOTTLE PO PRN (08:20)
[2017-07-15] MEDS: PANTOPRAZOLE 40 MG TABLET PO SCH (09:26)
[2017-07-15 12:00] VITALS: BP 136/87
== END 2017-07-15 15:40 | disposition home or self-care (01) | DRG 637 ==
LOC: N.ED 16:19 → N.EDINP 16:19 → N.2E 20:23 → SUATTDRO 07-12 14:28
PROVIDERS: ADMIT Internal Medicine; ATTEND Internal Medicine